=== PATIENT | female | born 1975 | race Caucasian/White ===

== ENCOUNTER → 2022-03-08 | Outpatient (CLI) | payer BC, SELFPAY ==
--- NOTE | 2022-03-08 | CYST_PTH ---
PATIENT: ZAID DAVIS [facility] U[facility][id number] AGE/SX: 46/F ROOM: RE03/08/[address]: RITA KUMAR MD : 1975 BED: DIS: 03/08/2022 SPEC #: [id number] RECD: 03/08/22 13:55 STATUS: SUSIE CRISTIAN #: [id number] TATI: 03/08/22 00:[address]: RITA KUMAR DEPT: SURGICAL PATHOLOGY RECD BY: [place] Tissues: CYST Procedures: Special Stain Group I Surgery Specimen Level IV AFB Stain (control) GMS Stain (control) HEADER OPERATION: Biopsy of right mandible cystic lesion PRE-OP DIAGNOSIS: Right mandible lesion TISSUE SUBMITTED: Right mandible cyst MICROSCOPIC DIAGNOSIS Right mandibular cyst, biopsy: Squamous mucosa with ulceration, acute and chronic inflammation and granulation. Bone with no pathologic changes. Negative for acid-fast bacilli and fungal organisms. See comment. AM:vinay 03/11/2022 COMMENT AFB and GMS stains with matched controls were used in the evaluation of this case. Due to extensive inflammation, an odontogenic keratocyst cannot be ruled out. Radiograph of lesion is reviewed. The lesion is consistent with a radicular/dentigerous cyst. Clinical correlation is suggested. The case is discussed with Dr. Kumar on 03/14/[address] Chapa. Case has been reviewed in consultation with Dr. Nevarez who concurs with the above diagnosis. IDC:SJ MICROSCOPIC DESCRIPTION Slides are reviewed. GROSS DESCRIPTION Received in fixative is one container labeled with the patient's name and designated lower right buccal lesion. The specimen consists of three irregular fragments of light marroquin-pink soft tissue that in aggregate measure 2 x 1 x 0.2 cm. The specimen is totally submitted in one cassette. / AM:vinay 03/08/2022 TC:2 CPT: 75978, 19189 x2
== END | disposition home or self-care (01) ==
PROVIDERS: Referring Provider Dentist Oral and Maxillofacial Surgery; Visit Provider Dentist Oral and Maxillofacial Surgery
DX: M27.9 Disease of jaws, unspecified (principal)
CPT/HCPCS: 88304; 88305; 88312

== ENCOUNTER 2023-03-07 08:29 | Day surgery (SDC) | payer BC, SELFPAY ==
--- NOTE | 2023-02-14 17:22 | PCM.HP.BLA ---
History and Physical Date of Admission: 03/07/23 HPI: The patient is a 47 year old female presenting for pre-operative visit. She is scheduled for Hysteroscopy D&C, fwith possible polyp resection for postmenopausal bleeding and thickened endometrium on 03/07/23. Procedure discussed along with risks, benefits and complications. Other alternatives discussed for management. Consent form signed? No. ? ? PAST MEDICAL HISTORY PAST MEDICAL HISTORY Diagnosis Date ? Cervical high risk HPV (human papillomavirus) test positive 02/25/2022 ? done at - also 12/25/2020,09/10/2019 ? Cervical high risk HPV (human papillomavirus) test positive 10/14/2018 ? on colposcopy done at - 1 oclock ? Depression ? ? Dysplasia of cervix, low grade (CIARAN 1) 02/01/2021 ? done at -colp- 6 oclock ? Dysplasia of cervix, low grade (CIARAN 1) 11/17/2019 ? done at - colp- 2 and 7 oclock ? Fibrocystic breast ? ? left ? Herpes simplex disciform keratitis ? ? Hypothyroidism ? ? Invasive ductal carcinoma of breast, female, left (HCC) 08/02/2015 ? moderately differentiated- estrogen and progesterone receptive POSITIVE ? LGSIL on Pap smear of cervix 02/25/2022 ? done at - also 09/10/2019 ? Low vitamin B12 level ? ? Mixed hyperlipidemia ? ? Muscle weakness (generalized) ? ? Obesity ? ? Osteopenia ? ? BMD 12/02/2022 at ? Sinusitis ? ? ? PAST SURGICAL HISTORY PAST SURGICAL HISTORY Procedure Laterality Date ? BIOPSY OF VULVA ? 11/17/2019 ? done at -squamous mucosa with focal acanthosis, hyperkeratosis, and basal Hypermelanosis ? BREAST LUMPECTOMY HX Left 08/31/2015 ? done at -invasive ductal carcinomia- 9mm ? BX OF BREAST; INCISIONAL Left 08/02/2015 ? done at ? CERVIX UTERI CONIZA LP ELCTRO EXCI ? 03/21/2022 ? at - ? COLONOSCOPY SCREENING ? 08/17/2015 ? HALLUX VALGUS; LAPIDUS TYPE PROC-BUNION ? ? ? HYSTEROSCOPY, DIAGNOSTIC (SEPARATE ? 03/2022 ? D&C ? KNEE SURGERY HX ? 03/13/2009 ? ACL repair ? LIGATE FALLOPIAN TUBE ? ? ? ORAL SURGERY PROCEDURE ? 03/08/2022 ? right mandibular cust/biopsy ? SENT LYMPH NODE BIOPSY ? 08/31/2015 ? left- negative ? VAGINOSCOPY ? 02/01/2021 ? 11/17/2019 ? ? ? CURRENT MEDICATIONS Current Outpatient Medications Medication Sig Dispense Refill ? VENLAFAXINE ER 150 MG TABLET,EXTENDED RELEASE 24 HR Take 150 mg by mouth once daily. ? ? ? buPROPion SR (WELLBUTRIN SR) 100 mg 12 hr tablet Take 100 mg by mouth two times a day. ? ? ? loratadine (CLARITIN) 10 mg tablet, chewable Take 10 mg by mouth once daily. ? ? ? levothyroxine (SYNTHROID) 88 mcg tablet Take 88 mcg by mouth once daily. ? ? ? pravastatin (PRAVACHOL) 20 mg tablet Take 20 mg by mouth once daily. ? ? ? No current facility-administered medications for this visit. ? ? ALLERGIES: Latex ? PERSONAL HISTORY: SOCIAL HISTORY Social History ? Tobacco Use ? Smoking status: Former ? ? Packs/day: 1.00 ? ? Years: 30.00 ? ? Additional pack years: 0.00 ? ? Total pack years: 30.00 ? ? Types: Cigarettes ? ? Quit date: 12/11/2018 ? ? Years since quittin.1 ? Smokeless tobacco: Never Substance Use Topics ? Alcohol use: Yes ? ? Comment: socially ? FAMILY HISTORY: FAMILY HISTORY FAMILY HISTORY Problem Relation Age of Onset ? Hypertension Mother ? ? Aneurysm Mother ? ? Lipids Mother ? ? other (meniere's disease) Mother ? ? Breast Cancer Mother 74 ? Hypertension Father ? ? Lipids Father ? ? Heart Attack Father ? ? Breast Cancer Paternal Grandmother ? ? No Ocular Disease No Family History ? ? ? REVIEW OF SYMPTOMS: GENERAL: denies fevers or chills ENDOCRINOLOGY: has not been on steroids Cardiology : denies palpitations or chest pain Respiratory: denies SOB or cough Hematology: denies history of prolonged bleeding or easy bruising or VTE Allergy: Denies history of personal or family history of allergy to anesthesia ? PHYSICAL EXAMINATION: ? VITALS: Blood pressure 122/84, weight 178 lb (80.7 kg). ? GENERAL: The patient is well nourished, well hydrated in no acute distress. , The patient is oriented to time, place, and person. NECK: Supple. No lynphadenopathy, normal thyroid, no thyromegaly. LUNGS: Clear to auscultation bilaterally. no wheezes, rhonchi or rales HEART: Regular rate and rhythm, Normal heart sounds, and No murmurs or gallops ? IMPRESSION: PMB, Thickened endometrium ? PLAN: The risks/benefits/alternatives and personal involved for the planned hysteroscopy D&C with possible polyp resection were reviewed with the patient. Her questions were answered to her satisfaction and she desires to proceed. Consent was signed. I reviewed with her postop instructions and expectations. ? ? I have reviewed and updated past medical and surgical history, medications and allergies Assessment & Plan Assessment/Plan (1) PMB (postmenopausal bleeding): (2) Endometrial thickening on ultrasound:
[2023-03-07 08:52] VITALS: BP 116/73; PULSE 95; RESP 16; TEMP 37.5; O2SAT 99; BMI 33.8
--- OUTSIDE RECORDS SUMMARY | 2023-03-07 08:53 | XMS RPT_ITS | CCD ---
Author Name Unknown Address [address] [facility] [address] [place] [address] Organization [facility] Care Team Providers Care Attending Ambulatory Care Name Role Phone HASEEB, SHELIA Unavailable Unavailable HASEEB, SHELIA Unavailable Unavailable HARPSTER, DALLAS Unavailable Unavailable HASEEB, SHELIA Unavailable Unavailable HAESEB, SHELIA Unavailable Unavailable HARPSTER, DALLAS Unavailable Unavailable HASEEB, SHELIA Unavailable Unavailable HASEEB, SHELIA Unavailable Unavailable HARPSTER, DALLAS Unavailable Unavailable HASEEB, SHELIA Unavailable Unavailable HASEEB, SHELIA Unavailable Unavailable HARPSTER, DALLAS Unavailable Unavailable HASEEB, SHELIA Unavailable Unavailable HASEEB, SHELIA Unavailable Unavailable HARPSTER, DALLAS Unavailable Unavailable Edna Miranda Unavailable Unavaila ble Orefield, Aby July Unavailable Unavailab le Orefield, Aby Unavailable Unavailable Orefield, Aby Unavailable Unavailable Orefield, Aby Unavailable Unavailable Orefield, Aby J Unavailable Unavailable Luis Drummond Unavailable Unavailable Orefield, Aby J Unavailable Unavailable Unavailable Unavailable Unavailable Alondra Sykes Unavailable Unavailable Orefield, Aby J Unavailable Unavailable Unavailable Unavailable Charmaine Potter P Unavailable Doris Gill MD A Primary Care Provider Doris Gill MD A Primary Care Provider Doris Gill MD A Primary Care Provider Gabriela Mcfarland Attending Unavailable Charmaine Potter Primary Care Unavailable Dr. S[place] Admitting Unavailable Dr. [place] Attending Unavailable Potter, Charmaine Primary Care Unavailable HILL, ACADEMIC COUNSELOR SHANTI JONES Attending Unavailable Potter, Charmaine Primary Care Unavailable HILL, ACADEMIC COUNSELOR SHANTI JONES Admitting Unavailable HILL, ACADEMIC COUNSELOR SHANTI JONES Attending Unavailable Potter, Charmaine Primary Care Unavailable Potter, Charmaine Attending Unavailable Potter, Charmaine Primary Care Unavailable Potter, Charmaine Attending Unavailable Potter, Charmaine Primary Care Unavailable Potter, Charmaine Attending Unavailable Potter, Charmaine Referring Unavailable Potter, Charmaine Primary Care Unavailable Potter, Charmaine Primary Care Unavailable MD DORIS GILL Attending Caterina vailable Potter, Charmaine Attending Unavailable Potter, Charmaine Referring Unavailable Potter, Charmaine Admitting Unavailable Potter, Charmaine Primary Care Unavailable Potter, Charmaine Attending Unavailable Potter, Charmaine Referring Unavailable Orefield, Ms. Aby June Primary Care Unava ilable Potter, Charmaine Attending Unavailable Orefield, Ms. Aby [facility] Care Unava ilable Orefield, Ms. Aby June Primary Care Unava ilable Potter, Charmaine Primary Care Unavailable Bartolo, MsTarah Harper Attending Unavailabl e Bartolo, MsTarah Harper Referring Unavailabl e Potetr, Charmaine Primary Care Unavailable Mcfarland, MsTarah Harper Attending Unavailabl e Mcfarland, MsTarah Ochoa M Referring Unavailabl e Potter, Charmaine Primary Care Unavailable Orefield, Ms. Aby [facility] Care Unava ilable Bg, Dr. Doris Wick Attending Un available Bg, Dr. Doris Wick Referring Un available Potter, Charmaine Primary Care Unavailable Bg, Dr. Doris Wick Attending Un available Bg, Dr. Doris Wick Referring Un available Potter, Charmaine Referring Unavailable Potter, Charmaine Primary Care Unavailable Potter, Charmaine Attending Unavailable Potter, Charmaine Attending Unavailable Orefield, Ms. Aby June Primary Care Unava ilable Potter, Charmaine Referring Unavailable Doris Gill MD Primary Care Provider Unavailable Primary Care Provider DORIS Guerra Attending Unavailab le LONGSDORF, DORIS A Referring Unavailab le LONGSDORF, DORIS A Primary Care Unavailab GABRIELA De Attending Unavailable GABRIELA MCFARLAND Referring Unavailable LONGSDORF, DORIS A Primary Care Unavailab le LONGSDORF, DORIS A Attending Unavailab le LONGSDORF, DORIS A Primary Care Unavailab le LONGSDORF, DORIS A Attending Unavailab le LONGSDORF, DORIS A Referring Unavailab le LONGSDORF, DORIS A Primary Care Unavailab GABRIELA De Attending Unavailable LONGSDORF, DORIS A Primary Care Unavailab RE Ornelas Attending Unavailable GABRIELA MCFARLAND Referring Unavailable LONGSDORF, DORIS A Primary Care Unavailab le LONGSDORF, DORIS A Attending Unavailab le LONGSDORF, DORIS A Primary Care Unavailab Arely Weber MD Unavailable CHARMAINE POTTER Primary Care Unavailable LONGSDORF, DORIS A Primary Care Unavailab sari STEVE, DORIS Giana Attending Unavailable ARELY HARTMAN Referring Unavailable LONGSDORF, DORIS A Primary Care Unavailab le LONGSDORF, DORIS A Primary Care Unavailab le LONGSDORF, DORIS A Primary Care Unavailab JOE Castrejon Attending Unavailable HAURYSANTI Attending Unavailable HAURY, SANTI Attending Unavailable LONGSDORF, DORIS A Primary Care Unavailab MAX Haas Attending Unavailable LONGSDORF, DORIS A Primary Care Unavailab GABRIELA De Referring Unavailable GABRIELA MCFARLAND Referring Unavailable LONGSDORF, DORIS A Primary Care Unavailab GABRIELA De Referring Unavailable LONGSDORF, DORIS A Primary Care Unavailab SHANTI Carreno Referring Unavailable LONGSDORF, DORIS A Primary Care Unavailab GABRIELA De Referring Unavailable LONGSDORF, DORIS A Primary Care Unavailab GABRIELA De Referring Unavailable LONGSDORF, DORIS A Primary Care Unavailab SHANTI Carreno S Attending Unavailable LONGSDORF, DORIS A Primary Care Unavailab SHANTI Carreno S Referring Unavailable LONGSDORF, DORIS A Primary Care Unavailab GABRIELA De Referring Unavailable LONGSDORF, DORIS A Primary Care Unavailab GABRIELA De Referring Unavailable DORIS GILL Primary Care Unavailab ARELY Weber Attending Unavailable SHANTI ARAUJO Referring Unavailable DORIS GILL Primary Care Unavailab DORIS Bridges Primary Care Unavailab le Allergies Allergy Classification Reported Allergen(s) Allergy Type Date of Onset Reaction(s) Facility (20 sources) Latex; Translations: [LATEX] Propensity to adverse reactions 3 Other, Other: See Comments [facility] (2 sources) natural latex rubber Allergy to substance (finding) [facility] [address] Work Phone: Medications Current Medications Medication Drug Class(es) Dates Sig (Normalized) Sig (Original) 24 hr buPROPion hydrochloride 150 mg extended release oral tablet (20 sources) Aminoketone Start: 03-11-2022 take 1 tablet by mouth once daily buPROPion XL (Wellbutrin XL) 150 mg 24 hr tablet Indications: Recurrent major depressive disorder, remission status unspecified (CMS/HCC) Take 1 tablet (150 mg) by mouth once daily. 90 tablet 1 09/05/2022 Active Completed/Discontinued Medications Medication Drug Class(es) Dates Sig (Normalized) Sig (Original) amoxicillin 875 mg oral tablet (8 sources) Penicillin-class Antibacterial Start: 11-09-19 End: 12-22-19 21 take 1 tablet by mouth once daily Amoxicillin 875 MG Oral Tablet TAKE 1 TABLET EVERY 12 HOURS DAILY. Quantity: 14 Refills: 0 Ordered: 09-Nov-2019 Aby Bradford Start : 09-Nov-2019 End : 21-Dec-2020 Complete busPIRone hydrochloride 5 mg oral tablet (1 source) Start: 08-09-19 16 busPIRone HCl - 5 MG Oral Tablet Quantity: 60 Refills: 0 Start : 09-Aug-2015 Active citalopram 20 mg oral tablet (6 sources) Serotonin Reuptake Inhibitor take 1 tablet by mouth once daily CeleXA 20 MG Oral Tablet Take 1 tablet daily Quantity: 0 Refills: 0 Ordered: 26-Feb-2021 DO Active 1 ml dexamethasone phosphate 4 mg/ml injection (2 sources) Corticosteroid Start: 11-14-19 23 End: 11-14-19 23 dexAMETHasone (Decadron) injection 4 mg fluticasone propionate 0.05 mg/actuat metered dose nasal spray (16 sources) Corticosteroid Start: 10-28-19 End: 12-22-19 take 1 spray(s) nasal route twice daily Fluticasone Propionate 50 MCG/ACT Nasal Suspension USE 1 SPRAY INTO EACH NOSTRIL TWICE A DAY Quantity: 16 Refills: 0 Ordered: 19-Nov-2019 Sandy ROSECORNELIOAby Start : 19-Nov-2019 End : 21-Dec-2020 Complete ibuprofen 400 mg oral tablet (7 sources) Nonsteroidal Anti-inflammatory Drug End: 12-21-19 take 1 tablet by mouth four times daily at mealtime ibuprofen 400 mg tablet Take 1 tablet (400 mg) by mouth 4 times a day. With food 0 12/20/2022 Discontinued (Med List Cleanup) medroxyPROGESTERone acetate 10 mg oral tablet (4 sources) Progestin Start: 01-07-20 End: 01-21-20 take 1 tablet by mouth once daily medroxyPROGESTERone (PROVERA) 10 mg tablet Take 1 tablet by mouth once daily. 10 tablet 0 01/06/2023 01/20/2023 Discontinued (Course of therapy completed) Problems Active Problems Problem Classification Problem Date Documented Da te Episodic/Chronic Cancer of breast (20 sources) Malignant neoplasm of central part of female breast; Translations: [Malignant neoplasm of central portion of female breast] Onset: 04-01-2022 06-17-2022 Chronic Diseases of mouth; excluding dental (1 source) Leukoplakia of oral mucosa, including tongue; Translations: [Leukoplakia of oral mucosa, including tongue] Onset: 09-06-2022 Episodic Diseases of white blood cells (1 source) Decreased white blood cell count, unspecified; Translations: [Decreased white blood cell count, unspecified] Onset: 04-01-2022 Chronic Disorders of lipid metabolism (20 sources) Mixed hyperlipidemia; Translations: [Mixed hyperlipidemia] Onset: 03-11-2022 06-17-2022 Chronic Disorders usually diagnosed in infancy, childhood, or adolescence (2 sources) Tic disorder, unspecified Onset: 06-20-2021 Chronic Immunizations and screening for infectious disease (20 sources) Patient encounter status; Translations: [Need for prophylactic vaccination and inoculation against unspecified single disease] 12-09-2022 Episodic Menopausal disorders (8 sources) Postmenopausal bleeding; Translations: [Postmenopausal bleeding] Onset: 12-19-2022 12-19-2022 Chronic Mood disorders (20 sources) Recurrent major depression; Translations: [Major depressive affective disorder, recurrent episode, unspecified] Onset: 04-03-2022 06-17-2022 Chronic Mood disorders (1 source) Mood disorders; Translations: [Depression, unspecified] Onset: 03-21-2022 Nonmalignant breast conditions (20 sources) Fibrocystic disease of breast; Translations: [Diffuse cystic mastopathy] Onset: 04-03-2022 04-03-2022 Chronic Other and unspecified benign neoplasm (20 sources) Fibroadenoma of breast; Translations: [Benign neoplasm of breast] Episodic Other bone disease and musculoskeletal deformities (7 sources) Osteopenia; Translations: [Other specified disorders of bone density and structure, unspecified site] Onset: 12-19-2022 12-19-2022 Episodic Other connective tissue disease (2 sources) Biceps tendinitis; Translations: [Bicipital tenosynovitis] Episodic Other connective tissue disease (1 source) Lateral epicondylitis, unspecified elbow; Translations: [Lateral epicondylitis, unspecified elbow] Onset: 09-30-2022 Episodic Other eye disorders (18 sources) Pain in eye; Translations: [Pain in or around eye] Episodic Other female genital disorders (1 source) Abnormal uterine bleeding; Translations: [Abnormal uterine and vaginal bleeding, unspecified] 01-20-2023 Chronic Other female genital disorders (2 sources) Abnormal uterine and vaginal bleeding, unspecified; Translations: [Abnormal uterine and vaginal bleeding, unspecified] Onset: 02-07-2023 Chronic Other female genital disorders (6 sources) Vaginal discharge; Translations: [Leukorrhea, not specified as infective] Episodic Other gastrointestinal disorders (1 source) Constipation; Translations: [Constipation, unspecified] 12-19-2022 Episodic Other non-traumatic joint disorders (4 sources) Shoulder pain; Translations: [Pain in right shoulder] 07-15-2022 Episodic Other non-traumatic joint disorders (3 sources) Pain in elbow; Translations: [Pain in joint, upper arm] Episodic Other non-traumatic joint disorders (14 sources) Pain in right shoulder; Translations: [Acute pain of right shoulder] Onset: 07-15-2022 Episodic Other non-traumatic joint disorders (4 sources) Pain in right elbow; Translations: [Pain in right elbow] Onset: 09-30-2022 Episodic Other nutritional; endocrine; and metabolic disorders (20 sources) Obesity; Translations: [Obesity, unspecified] Onset: 04-03-2022 04-03-2022 Chronic Other nutritional; endocrine; and metabolic disorders (1 source) Obesity, unspecified; Translations: [Obesity, unspecified] Onset: 03-21-2022 Chronic Other nutritional; endocrine; and metabolic disorders (1 source) Body mass index (BMI) 32.0-32.9, adult; Translations: [Body mass index [BMI] 32.0-32.9, adult] Onset: 03-21-2022 Chronic Other and delivery including normal (20 sources) Delivery normal; Translations: [Normal delivery] Episodic Past or Other Problems Problem Classification Problem Date Documented Date Episodic/Chronic Allergic reactions (1 source) Latex allergy status; Translations: [Latex allergy status] Onset: 03-21-2022 Episodic Blindness and vision defects (20 sources) Visual disturbance; Translations: [Unspecified visual disturbance] Onset: 04-03-2022 04-03-2022 Episodic Cancer of breast (20 sources) History of malignant neoplasm of breast; Translations: [Personal history of malignant neoplasm of breast] Onset: 03-21-2022 Episodic Cancer of cervix (13 sources) Low grade squamous intraepithelial lesion on cervical Papanicolaou smear; Translations: [Papanicolaou smear of cervix with low grade squamous intraepithelial lesion (LGSIL)] Onset: 03-21-2022 Episodic Contraceptive and procreative management (1 source) Tubal ligation status; Translations: [Tubal ligation status] Onset: 03-21-2022 Episodic Nutritional deficiencies (20 sources) Decreased vitamin B12 level; Translations: [Other B-complex deficiencies] Onset: 04-03-2022 06-17-2022 Episodic Other and unspecified benign neoplasm (11 sources) Fibroadenoma of left breast; Translations: [Benign neoplasm of left breast] Onset: 04-03-2022 04-03-2022 Episodic Other connective tissue disease (11 sources) Medial epicondylitis of right humerus; Translations: [Medial epicondylitis, right elbow] Onset: 11-13-2022 11-13-2022 Episodic Other connective tissue disease (4 sources) Medial epicondylitis, right elbow; Translations: [Medial epicondylitis, right elbow] Onset: 11-13-2022 Episodic Other female genital disorders (20 sources) Vaginal lesion; Translations: [Other specified noninflammatory disorders of vagina] Onset: 04-03-2022 04-03-2022 Episodic Other female genital disorders (20 sources) Cervical intraepithelial neoplasia grade 1; Translations: [Mild dysplasia of cervix] Onset: 04-03-2022 04-03-2022 Episodic Other female genital disorders (20 sources) Enlarged uterus; Translations: [Hypertrophy of uterus] Onset: 04-03-2022 04-03-2022 Episodic Other female genital disorders (2 sources) Mild cervical dysplasia; Translations: [Mild cervical dysplasia] Onset: 03-21-2022 Episodic Other female genital disorders (4 sources) Hypertrophy of uterus; Translations: [Hypertrophy of uterus] Onset: 03-04-2022 Episodic Other inflammatory condition of skin (11 sources) Itching of skin; Translations: [Unspecified pruritic disorder] Onset: 04-03-2022 Resolved: 04-23-2022 04-23-2022 Episodic Other inflammatory condition of skin (12 sources) Pruritus, unspecified; Translations: [Pruritus] Onset: 03-11-2022 Resolved: 04-23-2022 04-23-2022 Episodic Other screening for suspected conditions (not mental disorders or infectious disease) (20 sources) Cancer cervix screening status; Translations: [Screening for malignant neoplasms of cervix] Onset: 02-25-2022 Episodic Sexually transmitted infections (not HIV or hepatitis) (20 sources) Cervical smear result; Translations: [Cervical high risk human papillomavirus (HPV) DNA test positive] Onset: 04-03-2022 04-03-2022 Episodic Unclassified (1 source) Encntr screen mammogram for malignant neoplasm of breast; Translations: [Encntr screen mammogram for malignant neoplasm of breast] Onset: 08-11-2017 Unclassified (1 source) Patient encounter status; Translations: [Encounter for vaccination] Unclassified (20 sources) Finding of menstrual bleeding; Translations: [Menstruation] Results Test Name Value Interpretation Reference Range Facil ity Vital Signs Date Time Vital Sign Value Performing Clinician Facility 02-21-2023 11:00-0500 Diastolic blood pressure 84 mm[Hg] Max Cisneros DO Work Phone: [facility] 02-21-2023 11:00-0500 Heart rate 84 /min Max Cisneros DO Work Phone: [facility] 02-21-2023 11:00-0500 Respiratory rate 16 /min Max Cisneros DO Work Phone: [facility] 02-21-2023 11:00-0500 SaO2% (BldA) [Mass fraction] 96 % Max Cisneros DO Work Phone: [facility] 02-21-2023 11:00-0500 Systolic blood pressure 108 mm[Hg] Max Cisneros DO Work Phone: [facility] 02-21-2023 10:01-0500 Body height 154.9 cm Max Cisneros DO Work Phone: [facility] 02-21-2023 10:01-0500 Body mass index (BMI) [Ratio] 33.82 kg/m2 Max Cisneros DO Work Phone: [facility] 02-21-2023 10:01-0500 Body temperature 97.81 [degF] Max Cisneros DO Work Phone: [facility] 02-21-2023 10:01-0500 Body weight 81.19 kg Max Cisneros DO Work Phone: [facility] 01-13-2023 08:57-0500 Body height 157.5 cm Arely Hartman MD Work Phone: [facility] 01-13-2023 08:57-0500 Body mass index (BMI) [Ratio] 32.69 kg/m2 Arely Hartman MD Work Phone: [facility] 01-13-2023 08:57-0500 Body temperature 97.9 [degF] Arely Hartman MD Work Phone: [facility] 01-13-2023 08:57-0500 Body weight 81.1 kg Arely Hartman MD Work Phone: [facility] 01-13-2023 08:57-0500 Diastolic blood pressure 81 mm[Hg] Arely Hartman MD Work Phone: [facility] 01-13-2023 08:57-0500 Heart rate 90 /min Arely Hartman MD Work Phone: [facility] 01-13-2023 08:57-0500 Respiratory rate 16 /min Arely Hartman MD Work Phone: [facility] 01-13-2023 08:57-0500 SaO2% (BldA) [Mass fraction] 96 % Arely Hartman MD Work Phone: [facility] 01-13-2023 08:57-0500 Systolic blood pressure 117 mm[Hg] Arely Hartman MD Work Phone: [facility] 01-03-2023 10:27-0500 Diastolic blood pressure 72 mm[Hg] Santi Haury MUSEUM SECURITY CHIEF.ACADEMIC COUNSELOR Work Phone: [facility] 01-03-2023 10:27-0500 Heart rate 97 /min Santi Haemery MUSEUM SECURITY CHIEF.ACADEMIC COUNSELOR Work Phone: [facility] 01-03-2023 10:27-0500 SaO2% (BldA) [Mass fraction] 98 % Santi Haury MUSEUM SECURITY CHIEF.ACADEMIC COUNSELOR Work Phone: [facility] 01-03-2023 10:27-0500 Systolic blood pressure 110 mm[Hg] Santi Haury MUSEUM SECURITY CHIEF.ACADEMIC COUNSELOR Work Phone: [facility] 01-03-2023 09:59-0500 Body weight 79.83 kg Santi Haury MUSEUM SECURITY CHIEF.ACADEMIC COUNSELOR Work Phone: [facility] 12-19-2022 09:49-0500 Body weight 78.47 kg Santi Haury MUSEUM SECURITY CHIEF.ACADEMIC COUNSELOR Work Phone: [facility] 12-19-2022 09:49-0500 Diastolic blood pressure 82 mm[Hg] Santi Haury MUSEUM SECURITY CHIEF.ACADEMIC COUNSELOR Work Phone: [facility] 12-19-2022 09:49-0500 Systolic blood pressure 120 mm[Hg] Santiparul Daltonemery MUSEUM SECURITY CHIEF.ACADEMIC COUNSELOR Work Phone: [facility] 12-05-2022 09:52-0400 Body height 157.5 cm Shanti Araujo MUSEUM SECURITY CHIEF-ACADEMIC COUNSELOR Work Phone: [facility] 12-05-2022 09:52-0400 Body mass index (BMI) [Ratio] 31.63 kg/m2 Shanti Araujo MUSEUM SECURITY CHIEF-ACADEMIC COUNSELOR Work Phone: [facility] 12-05-2022 09:52-0400 Body weight 78.47 kg Shanti Araujo MUSEUM SECURITY CHIEF-ACADEMIC COUNSELOR Work Phone: [facility] 12-05-2022 09:52-0400 Diastolic blood pressure 83 mm[Hg] Shanti Araujo MUSEUM SECURITY CHIEF-ACADEMIC COUNSELOR Work Phone: [facility] 12-05-2022 09:52-0400 Heart rate 88 /min Shanti Araujo MUSEUM SECURITY CHIEF-ACADEMIC COUNSELOR Work Phone: [facility] 12-05-2022 09:52-0400 Respiratory rate 20 /min Shanti Araujo MUSEUM SECURITY CHIEF-ACADEMIC COUNSELOR Work Phone: [facility] 12-05-2022 09:52-0400 SaO2% (BldA) [Mass fraction] 97 % Shanti Araujo MUSEUM SECURITY CHIEF-ACADEMIC COUNSELOR Work Phone: [facility] 12-05-2022 09:52-0400 Systolic blood pressure 119 mm[Hg] Shanti Araujo MUSEUM SECURITY CHIEF-ACADEMIC COUNSELOR Work Phone: [facility] 09-30-2022 08:07-0400 Body temperature 98.6 [degF] Charmaine P Potter Work Phone: [facility] [address] Work Phone: 09-17-2022 08:02-0400 Body height 157.5 cm Doris Gill MD Work Phone: [facility] 09-17-2022 08:02-0400 Body mass index (BMI) [Ratio] 30.75 kg/m2 Doris Gill MD Work Phone: [facility] 09-17-2022 08:02-0400 Body weight 76.25 kg Doris Gill MD Work Phone: [facility] 09-17-2022 08:02-0400 Diastolic blood pressure 84 mm[Hg] Doris Gill MD Work Phone: [facility] 09-17-2022 08:02-0400 Heart rate 79 /min Doris Gill MD Work Phone: [facility] 09-17-2022 08:02-0400 SaO2% (BldA) [Mass fraction] 99 % Doris Gill MD Work Phone: [facility] 09-17-2022 08:02-0400 Systolic blood pressure 116 mm[Hg] Doris Gill MD Work Phone: [facility] 07-15-2022 16:18-0400 Body mass index (BMI) [Ratio] 31.46 kg/m2 Doris Gill MD Work Phone: [facility] 07-15-2022 16:18-0400 Body weight 78.02 kg Doris Gill MD Work Phone: [facility] 07-15-2022 16:18-0400 Diastolic blood pressure 78 mm[Hg] Doris Gill MD Work Phone: [facility] 07-15-2022 16:18-0400 Heart rate 83 /min Doris Gill MD Work Phone: [facility] 07-15-2022 16:18-0400 SaO2% (BldA) [Mass fraction] 96 % Doris Gill MD Work Phone: [facility] 07-15-2022 16:18-0400 Systolic blood pressure 126 mm[Hg] Doris Gill MD Work Phone: [facility] 06-17-2022 08:03-0400 Body height 157.5 cm Doris Gill MD Work Phone: [facility] 06-17-2022 08:03-0400 Body mass index (BMI) [Ratio] 31.39 kg/m2 Doris Gill MD Work Phone: [facility] 06-17-2022 08:03-0400 Body weight 77.84 kg Doris Gill MD Work Phone: [facility] 06-17-2022 08:03-0400 Diastolic blood pressure 80 mm[Hg] Doris Gill MD Work Phone: [facility] 06-17-2022 08:03-0400 Heart rate 84 /min Doris Gill MD Work Phone: [facility] 06-17-2022 08:03-0400 Systolic blood pressure 130 mm[Hg] Doris Gill MD Work Phone: [facility] 04-05-2022 10:47-0500 Body height 157.48 cm Charmaine P Potter Work Phone: [place] [address] [place] Work Phone: 04-05-2022 10:47-0500 Body mass index (BMI) [Ratio] 30.8 kg/m2 Charmaine P Potter Work Phone: [place] [address] [place] Work Phone: 04-05-2022 10:47-0500 Body surface area Derived from formula 1.78 m2 Charmaine P Potter Work Phone: [facility] [address] [place] Work Phone: 04-05-2022 10:47-0500 Body weight 76.38 kg Charmaine P Potter Work Phone: [address] Work Phone: 04-05-2022 10:47-0500 Diastolic blood pressure 78 mm[Hg] Charmaine P Potter Work Phone: [address] Work Phone: 04-05-2022 10:47-0500 Systolic blood pressure 120 mm[Hg] Charmaine P Potter Work Phone: [address] Work Phone: 04-01-2022 08:45-0500 Body height 157.48 cm Charmaine P Potter Work Phone: [facility] Work Phone: 04-01-2022 08:45-0500 Body mass index (BMI) [Ratio] 30.76 kg/m2 Charmaine P Potter Work Phone: [facility] Work Phone: 04-01-2022 08:45-0500 Body surface area Derived from formula 1.78 m2 Charmaine P Potter Work Phone: [facility] Work Phone: 04-01-2022 08:45-0500 Body weight 76.29 kg Charmaine P Potter Work Phone: [facility] Work Phone: 04-01-2022 08:45-0500 Diastolic blood pressure 82 mm[Hg] Charmaine P Potter Work [facility]: [facility] [facility] Work Phone: 04-01-2022 08:45-0500 Heart rate 90 /min Charmaine P Potter Work Phone: [facility] Work Phone: 04-01-2022 08:45-0500 SaO2% (BldA) [Mass fraction] 98 % Charmaine P Potter Work Phone: [facility] Work Phone: 04-01-2022 08:45-0500 Systolic blood pressure 110 mm[Hg] Charmaine P Potter Work Phone: [facility] Work Phone: 03-11-2022 08:04-0500 Body height 157.48 cm Charmaine P Potter Work Phone: [facility] Work Phone: 03-11-2022 08:04-0500 Body mass index (BMI) [Ratio] 31.09 kg/m2 Charmaine P Potter Work Phone: [facility] Work Phone: 03-11-2022 08:04-0500 Body surface area Derived from formula 1.78 m2 Charmaine P Potter Work Phone: [facility] Work Phone: 03-11-2022 08:04-0500 Body weight 77.11 kg Charmaine P Potter Work Phone: [facility] Work Phone: 03-11-2022 08:04-0500 Diastolic blood pressure 78 mm[Hg] Charmaine P Potter Work Phone: [facility] Work Phone: 03-11-2022 08:04-0500 Heart rate 85 /min Charmaine P Potter Work Phone: [facility] Work Phone: 03-11-2022 08:04-0500 SaO2% (BldA) [Mass fraction] 99 % Charmaine P Potter Work Phone: [facility] Work Phone: 03-11-2022 08:04-0500 Systolic blood pressure 120 mm[Hg] Charmanie Potter Work Phone: [facility] Work Phone: 03-06-2022 08:37-0500 Body height 157.48 cm Aby Delgado [address] Work Phone: 03-06-2022 08:37-0500 Body mass index (BMI) [Ratio] 30.73 kg/m2 Aby Delgado [address] Work Phone: 03-06-2022 08:37-0500 Body surface area Derived from formula 1.77 m2 Aby Delgado [address] Work Phone: 03-06-2022 08:37-0500 Body weight 76.2 kg Aby Delgado [address] Work Phone: 03-06-2022 08:37-0500 Diastolic blood pressure 82 mm[Hg] Aby Delgado [address] Work Phone: 03-06-2022 08:37-0500 Systolic blood pressure 126 mm[Hg] Aby Delgado [address] Work Phone: 02-25-2022 10:44-0500 Body height 157.48 cm Aby Delgado [address] Work Phone: 02-25-2022 10:44-0500 Body mass index (BMI) [Ratio] 30.82 kg/m2 Aby Delgado [address] Work Phone: 02-25-2022 10:44-0500 Body surface area Derived from formula 1.78 m2 Aby J Orefield [address] Work Phone: 02-25-2022 10:44-0500 Body weight 76.43 kg Aby Delgado [address] Work Phone: 02-25-2022 10:44-0500 Diastolic blood pressure 82 mm[Hg] Aby Delgado [address] Work Phone: 02-25-2022 10:44-0500 Systolic blood pressure 118 mm[Hg] Aby Delgado [address] Work Phone: 06-20-2021 13:40-0400 Body height 154.94 cm [facility] [place] [facility] 06-20-2021 13:40-0400 Body height 61 cm Alondra Bobonic [facility] [place] [facility] 06-20-2021 13:40-0400 Body mass index (BMI) [Ratio] 28.72 kg/m2 Alondra Bobonich [facility] 06-20-2021 13:40-0400 Body weight 152 kg Alondra Bobonic [facility] [place] [facility] 06-20-2021 13:40-0400 Body weight 68.95 kg Alondra Bobonich [facility] [place] [facility] 02-26-2021 15:08-0500 Body height 157.48 cm Aby Delgado Work Phone: [facility] Work Phone: 02-26-2021 15:08-0500 Body mass index (BMI) [Ratio] 28.35 kg/m2 Aby Delgado Work Phone: [facility] Work Phone: 02-26-2021 15:08-0500 Body surface area Derived from formula 1.72 m2 Aby Delgado Work Phone: [facility] Work Phone: 02-26-2021 15:08-0500 Body temperature 97.7 [degF] Aby Delgado Work Phone: [facility] Work Phone: 02-26-2021 15:08-0500 Body weight 70.31 kg Aby Delgado Work Phone: [facility] Work Phone: 02-26-2021 15:08-0500 Diastolic blood pressure 62 mm[Hg] Aby Delgado Work Phone: [facility] Work Phone: 02-26-2021 15:08-0500 Heart rate 84 /min Aby Delgado Work Phone: [facility] Work Phone: 02-26-2021 15:08-0500 SaO2% (BldA) [Mass fraction] 98 % Aby Delgado Work Phone: [facility] Work Phone: 02-26-2021 15:08-0500 Systolic blood pressure 118 mm[Hg] Aby Delgado Work Phone: [facility] Work Phone: 01-30-2021 11:25-0500 Body height 157.48 cm Aby Delgado Work Phone: [place] [address] [employer] Work Phone: 01-30-2021 11:25-0500 Body mass index (BMI) [Ratio] 27.87 kg/m2 Aby Delgado Work Phone: [place] [address] [place] Work Phone: 01-30-2021 11:25-0500 Body surface area Derived from formula 1.7 m2 Aby Delgado Work Phone: [place] [address] [place] Work Phone: 01-30-2021 11:25-0500 Body temperature 98 [degF] Aby Ferrellter Work Phone: [place] [address] [place] Work Phone: 01-30-2021 11:25-0500 Body weight 69.12 kg Aby Ferrellter Work Phone: [place] [address] [employer] Work Phone: 01-30-2021 11:25-0500 Diastolic blood pressure 84 mm[Hg] Aby Ferrellter Work Phone: [place] [address] [employer] Work Phone: 01-30-2021 11:25-0500 Systolic blood pressure 116 mm[Hg] Aby Delgado Work Phone: [place] [address] [employer] Work Phone: 12-22-2020 11:40-0500 Body height 157.48 cm Aby Delgado Work Phone: [place] [address] [employer] Work Phone: 12-22-2020 11:40-0500 Body mass index (BMI) [Ratio] 28.31 kg/m2 Aby Delgado Work Phone: [place] [address] [place] Work Phone: 12-22-2020 11:40-0500 Body surface area Derived from formula 1.71 m2 Aby Ferrellter Work Phone: [place] [address] [place] Work Phone: 12-22-2020 11:40-0500 Body temperature 98.6 [degF] Aby Ferrellter Work Phone: [place] [address] [place] Work Phone: 12-22-2020 11:40-0500 Body weight 70.2 kg Aby Delgado Work Phone: [address] Work Phone: 12-22-2020 11:40-0500 Diastolic blood pressure 68 mm[Hg] Aby Ferrellter Work Phone: [address] Work Phone: 12-22-2020 11:40-0500 Systolic blood pressure 112 mm[Hg] Aby Delgado Work Phone: [address] Work Phone: 12-21-2020 10:45-0500 Body height 157.48 cm Aby Delgado Work Phone: [facility] Work Phone: 12-21-2020 10:45-0500 Body mass index (BMI) [Ratio] 28.4 kg/m2 Aby Ferrellter Work Phone: [facility] Work Phone: 12-21-2020 10:45-0500 Body surface area Derived from formula 1.72 m2 Aby Delgado Work Phone: [facility] Work Phone: 12-21-2020 10:45-0500 Body temperature 98.7 [degF] Aby Ferrellter Work Phone: [facility] Work Phone: 12-21-2020 10:45-0500 Body weight 70.42 kg Aby Ferrellter Work Phone: [facility] Work Phone: 12-21-2020 10:45-0500 Diastolic blood pressure 70 mm[Hg] Aby J Orefield Work Phone: [facility] Work Phone: 12-21-2020 10:45-0500 Heart rate 80 /min Aby Delgado Work Phone: [facility] Work Phone: 12-21-2020 10:45-0500 Systolic blood pressure 108 mm[Hg] Aby Delgado Work Phone: [facility] Work Phone: Encounters Encounter Date Encounter Type Care Provider Facility Start: 02-21-2023 End: 02-21-2023 Emergency department patient visit DORIS NAPIERMSRADHA [facility] Start: 02-21-2023 End: 02-21-2023 Emergency department patient visit Max Cisneros DO Work Phone: [facility] Emergency Medicine Procedures Date Procedure Procedure Detail Performing Clinician Start: 02-21-2023 WRIST SPLINT DORIS GILL Start: 02-21-2023 XR WRIST LEFT 3+ VIEWS DORIS GILL Start: 02-21-2023 Radex wrist complete minimum 3 views Max Cisneros DO Work Phone: Start: 02-07-2023 CBC W Auto Different ial panel - Blood CHARMAINE POTTER Start: 01-28-2023 MISCELLANEOUS GENETICS TEST CHARMAINE POTTER Start: 01-20-2023 AMB REFERRAL TO GENETICS CHARMAINE POTTER Start: 01-13-2023 CBC W Auto Different ial panel - Blood DORIS QUYENNEREIDA Start: 01-13-2023 Comprehensive metabo lic 2000 panel - Serum or Plasma DORIS GILL Start: 01-13-2023 FOLATE DORIS GILL Start: 01-13-2023 IRON AND TIBC DORIS GILL Start: 01-13-2023 ONCBCN CLINIC APPOIN TMENT REQUEST DORIS GILL Start: 01-13-2023 Comprehensive metabo lic panel Arely Hartman MD Work Phone: Start: 01-03-2023 Urine test visual color cmprsn meths Santi Suero MUSEUM SECURITY CHIEF.ACADEMIC COUNSELOR Work Phone: Start: 12-31-2022 POINT OF CARE ULTRAS OUND NO CHARGE DORIS GILL Start: 12-27-2022 MR ELBOW RIGHT WO IV CONTRAST DORIS GILL Start: 12-27-2022 Mri any jt upper ext remity w/o contrast matrl Gabriela Mcfarland MUSEUM SECURITY CHIEF-ACADEMIC COUNSELOR Work Phone: Start: 12-20-2022 WRIST BRACE DORIS GILL Start: 12-19-2022 Microscopic observat ion [Identifier] in Cervix by Cyto stain Arely Hartman MD Work Phone: Start: 12-10-2022 FOLLOW UP IN OCCUPAT IONAL THERAPY DORIS GILL Start: 12-09-2022 US PELVIS TRANSABDOM INAL WITH TRANSVAGINAL DORIS GILL Start: 12-09-2022 Us transvaginal Shanti Araujo MUSEUM SECURITY CHIEF-ACADEMIC COUNSELOR Work Phone: Start: 12-05-2022 FOLLOW UP IN OCCUPAT IONAL THERAPY DORIS GILL Start: 12-03-2022 FOLLOW UP IN OCCUPAT IONAL THERAPY DORIS GILL Start: 12-02-2022 ESTRADIOL CHARMAINE RIYA KATHIE Start: 12-02-2022 FOLLICLE STIMULATING HORMONE CHARMAINE POTTER Start: 12-02-2022 LUTEINIZING HORMONE LAUREANO NA POTTER Start: 12-02-2022 DEXA BONE DENSITY SHIRA GILL Start: 11-28-2022 FOLLOW UP IN OCCUPAT IONAL THERAPY DORIS GILL Start: 11-26-2022 FOLLOW UP IN OCCUPAT IONAL THERAPY DORIS GILL Start: 11-20-2022 AMB REFERRAL TO OCCUPATIONAL THERAPY DORIS GILL Start: 11-13-2022 POINT OF CARE ULTRASOUND DORIS GILL Start: 11-13-2022 MEDIUM JOINT INJECTION/ARTHROCENTESIS DORIS GILL Start: 11-13-2022 Arthrocentesis aspir &/inj interm jt/burs w/us Gabriela Mcfarland MUSEUM SECURITY CHIEF-ACADEMIC COUNSELOR Work Phone: Start: 09-17-2022 FOLLOW UP IN FAMILY MEDICINE DORIS GILL Start: 08-29-2022 CBC W Auto Different ial panel - Blood CHARMAINE POTTER Start: 08-29-2022 Comprehensive metabo lic 2000 panel - Serum or Plasma CHARMAINE POTTER Start: 08-29-2022 Cyanocobalamin vitamin b-12 CHARMAINE POTTER Start: 08-29-2022 Lipid panel CHARMAINE RITTER KATHIE Start: 08-29-2022 TSH WITH REFLEX TO F REE T4 IF ABNORMAL CHARMAINE POTTER Start: 08-29-2022 Lipid 1996 panel - S jon or Plasma Doris Gill MD Work Phone: Start: 08-29-2022 Thyrotropin [Units/v olume] in Serum or Plasma Gabriela Mcfarland MUSEUM SECURITY CHIEF-ACADEMIC COUNSELOR Work Phone: Start: 06-17-2022 FOLLOW UP IN FAMILY MEDICINE DORIS GILL Start: 03-11-2022 End: 03-11-2022 Antibody screen Gabriela Mcfarland Plan of Treatment Date Care Activity Detail Author Start: 03-01-2029 DTaP/Tdap/Td Vaccines (2 - Td or Tdap) DTaP/Tdap/Td Vaccines (2 - Td or Tdap) [facility] Start: 03-01-2029 Urine microalbumin profile DTaP,Tdap,Td Vaccine (2 - Td or Tdap) [facility] Start: 12-20-2027 HPV Testing HPV Testing [facility] Start: 12-20-2027 Pap Testing Pap Testing [facility] Start: 08-30-2027 Lipid 1996 panel - Serum or Plasma Lipid Screening [facility] Start: 08-30-2027 Lipid panel Lipid Panel [facility] Start: 03-11-2027 Lipid panel Lipid Panel [facility] Start: 12-19-2025 Screening for malignant neoplasm of cervix [facility] Start: 08-29-2025 Diabetes Screening Diabetes Screening [facility] Start: 02-25-2025 Screening for malignant neoplasm of cervix [facility] Start: 08-30-2023 Mammography Mammogram Screening [facility] Start: 08-30-2023 Thyroid stimulating hormone measurement TSH Level [facility] Start: 07-15-2023 End: 07-15-2023 Patient encounter procedure 07/15/2023 9:00 AM EDT Office Visit [facility] Medical Office [facility] [address] [place] [id number] Shanti Araujo, MUSEUM SECURITY CHIEF-ACADEMIC COUNSELOR [address] [place] [address] [facility] Start: 05-26-2023 Zoster Vaccines (1 of 2) Zoster Vaccines (1 of 2) [facility] Start: 04-01-2023 End: 04-01-2023 Patient encounter procedure 04/01/2023 8:00 AM EST Office Visit [facility] [address] [place] [id number] Re Tijerina MD [address] [place] [address] [facility] Start: 03-31-2023 End: 03-31-2023 Patient encounter procedure [facility] [place] [place] Start: 03-25-2023 End: 03-25-2023 Patient encounter procedure 03/25/2023 7:30 AM EST Appointment [facility] [address] [place] [address] [facility] Start: 03-20-2023 End: 09-18-2023 CBC W Auto Differential panel - Blood CBC and Auto Differential Lab Routine Hypothyroidism, unspecified type Low vitamin B12 level Mixed hyperlipidemia Expected: 03/20/2023 (Approximate), Expires: 09/18/2023 [facility] Service Area Work Phone: Immunizations Immunization Date Immunization Notes Care Provider Fa cili 12-25-2022 Moderna SARS-CoV-2 Vaccination Arely Hartman MD Work Phone: [facility] 12-25-2022 Seasonal, quadrivale nt, recombinant, injectable influenza vaccine, preservative free Arely Hartman MD Work Phone: [facility] Work Phone: 12-10-2021 influenza, injectabl e, quadrivalent, preservative free Aby Delgado -[facility] Work Phone: Payers Date Payer Category Payer Unknown 2022 Unknown [id number] 1975 Unknown [id number] 2.16.8 40.1.896932.3.579.2.1068 1973 Unknown [id number] 2.16.8 40.1.679766.3.579.2.1068 1973 Unknown [id number] 2.16.8 40.1.534807.3.579.2.1068 1973 Unknown [id number] 2.16.8 40.1.661525.3.579.2.1068 1973 Unknown [id number] 2.16.8 40.1.658234.3.579.2.1068 1973 Unknown [id number] 2.16.8 40.1.636195.3.579.2.1068 1973 Unknown [id number] 2.16.8 40.1.148777.3.579.2.1068 1973 Unknown [id number] 2.16.8 40.1.657498.3.579.2.1068 1973 Unknown [id number] 2.16.8 40.1.282564.3.579.2.1068 1973 Unknown [id number] 2.16. 840.1.636647.3.579.2. 1973 Unknown [id number] 2.16. 840.1.955555.3.579.2. 1973 Unknown [id number] 2.16. 840.1.765383.3.579.2. 1973 Unknown [id number] 2.16. 840.1.800255.3.579.2.356 1973 Unknown [id number] 2.16. 840.1.249823.3.579.2.356 1973 Unknown [id number] 2.16. 840.1.898181.3.579.2. 1973 Unknown [id number] 2.16. 840.1.464949.3.579.2. 1973 Unknown [id number] 2.16. 840.1.387444.3.579.2. 1973 Unknown [id number] 2.16. 840.1.009730.3.579.2. 1973 Unknown [id number] 2.16.8 40.1.147628.3.579.2.1243 1973 Unknown [id number] 2.16.8 40.1.340498.3.579.2.1243 1973 Unknown [id number] 2.16.8 40.1.229220.3.579.2.1243 1973 Unknown [id number] 2.16.8 40.1.875581.3.579.2.1243 1973 Unknown [id number] 2.16.84 0.1.805437.3.579.2.1243 1973 Unknown [id number] 2.16.84 0.1.918109.3.579.2.1243 1973 Unknown [id number] 2.16.840 .1.818715.3.579.2.1243 1973 Unknown [id number] 2.16.8 40.1.664667.3.579.2.1244 1973 Unknown [id number] 2.16.8 40.1.762820.3.579.2.1244 1973 Unknown [id number] 2.16.8 40.1.900431.3.579.2.1244 1973 Unknown [id number] 2.16.84 0.1.652920.3.579.2.1244 1973 Unknown [id number] 2.16.84 0.1.733829.3.579.2.1244 1973 Unknown [id number] 2.16.84 0.1.975425.3.579.2.1242 1973 Unknown [id number] 2.16.84 0.1.491419.3.579.2.1242 1973 Unknown [id number] 2.16.84 0.1.106263.3.579.2.1242 1973 Unknown [id number] 2.16.84 0.1.244127.3.579.2.1242 1973 Unknown [id number] 2.16.84 0.1.588946.3.579.2.1242 1973 Unknown [id number] 2.16.84 0.1.092491.3.579.2.1242 1973 Unknown [id number] 2.16.84 0.1.895685.3.579.2.1242 1973 Unknown [id number] 2.16.84 0.1.493574.3.579.2.1242 1973 Unknown [id number] 2.16.84 0.1.557399.3.579.2.1242 1973 Unknown [id number] 2.16.84 0.1.575682.3.579.2.1242 1973 Unknown [id number] 2.16.84 0.1.691370.3.579.2.1242 1973 Unknown [id number] 2.16.84 0.1.939417.3.579.2.1242 1973 Unknown [id number] 2.16.840 .1.762371.3.579.2.1242 Unknown [id number] Social History Date Type Detail Facility Start: 04-23-2022 End: 01-20-2023 Coffee Coffee [facility] Work Phone: Start: 06-20-2021 Sex Dept[facility] D ermatology Start: 1975 [facility] Start: 06-17-2022 End: 07-15-2022 Tobacco smoking status NHIS Ex-smoker [facility] Work Phone: End: 12-11-2018 History of tobacco use Current smoker [facility] Work Phone: End: 12-11-2018 History of tobacco use Cigarette Smoker [facility] Work Phone: Start: 06-17-2022 Tobacco use and exposure User of smokeless tobacco [facility] Work Phone: Start: 06-17-2022 End: 01-20-2023 Alcohol intake Current drinker of alcohol (finding) [facility] Work Phone: Start: 04-23-2022 End: 01-20-2023 Tobacco use panel [facility] Work Phone: Start: 04-23-2022 Alcohol Comment occassionally hard seltzer [facility] Work Phone: Start: 04-16-2022 Gender identity Identifies as female gender (finding) [facility] Work Phone: Start: 04-16-2022 Sexual orientation Heterosexual (fin ding) [facility] Work Phone: Start: 06-07-2022 End: 02-21-2023 Exposure to SARS-CoV-2 (event) Not sure [facility] Start: 07-15-2022 End: 12-19-2022 Tobacco use and exposure Smokeless tobacco non-user [facility] Work Phone: Start: 11-16-2019 Alcohol Comment socially [facility] Start: 1975 Sex Assigned At Not on file [facility] National Score (1-100), lower number is lower risk 80 [facility] NEGATED: Highlighted row - - -[facility] Work Phone: Goals Date Patient Goal Desired Activity /State Functional Status Date Assessment Result Facility NEGATED: Highlighted row Functional performance Functional status health issues are not documented Disease [facility] Work Phone: Mental Status Date Assessment Result Facility NEGATED: Highlighted row Cognitive function [Interpretation] Cognitive status health issues are not documented Disease [facility] Work Phone: Clinical Notes 02-26-2016 to 02-21-2023 Max Cisneros, DO - 02/21/2023 9:51 AM ESTCamerograciela Cisneros, DO - 02/21/2023 9:51 AM ESTTelephone Encounter - Grace Ruiz RN - 01/20/2023 10:44 AM ESTPatient Instructions Note Date & Type Note Facility 02-21-2023 Emergency department Note HPI No chief complaint on file. Limitations to History: None HPI: 47-year-old female presents with left wrist pain after falling approximately 4 hours ago. Tripped over her dog. Fall on outstretched hand. Denies any head injury or loss of consciousness. Additional History Obtained from: at the bedside. Physical Exam: VS: As documented in the triage note and EMR flowsheet from this visit were reviewed. Appearance: Alert. cooperative, in no acute distress. Skin: Intact, dry skin, no lesions, rash, petechiae or purpura. HENT: Normocephalic, atraumatic. Nares patent. No intraoral lesions. Neck: Supple, without meningismus. Trachea at midline. No lymphadenopathy. Musculoskeletal: Full range of motion of the left wrist. Tenderness to palpation of the anterior aspect. Strong palpable radial pulse. Full movement of all fingers. Neurological: Sensation grossly intact to the medial lateral aspect of the left wrist. Psychiatric: Appropriate mood and affect. Rosi Coma Scale Score: 15 Patient History Past Medical History: Diagnosis Date ACL (anterior cruciate ligament) rupture 03/13/2009 Bunion Cancer (CMS/HCC) Encounter for full-term uncomplicated delivery Normal vaginal delivery Encounter for gynecological examination (general) (routine) without abnormal findings 11/12/2019 Pap test, as part of routine gynecological examination Other conditions influencing health status Menstruation Personal history of malignant neoplasm of breast History of malignant neoplasm of breast Personal history of other complications of , childbirth and the puerperium History of Personal history of other mental and behavioral disorders History of depression Past Surgical History: Procedure Laterality Date ANTERIOR CRUCIATE LIGAMENT REPAIR 03/13/2009 Primary Repair Of Knee Ligament Cruciate Anterior COLONOSCOPY 08/17/2015 Colonoscopy OTHER SURGICAL HISTORY 08/17/2015 Hallux Valgus (Bunion) Correction OTHER SURGICAL HISTORY 11/29/2019 Colposcopy OTHER SURGICAL HISTORY 08/11/2015 Lumpectomy TUBAL LIGATION 01/30/2021 Tubal Ligation Family History Problem Relation Name Age of Onset Aneurysm Mother Hyperlipidemia Mother Hypertension Mother Breast cancer Mother 74 Meniere's disease Mother Hyperlipidemia Father Hypercholesterolemia Hypertension Father Heart attack Father Breast cancer Paternal Grandmother Social History Tobacco Use Smoking status: Former Types: Cigarettes Smokeless tobacco: Never Vaping Use Vaping Use: Every day Start date: 08/10/2017 Substances: Nicotine, Flavoring Devices: Disposable Substance Use Topics Alcohol use: Yes Comment: occassionally hard seltzer Drug use: Never Physical Exam ED Triage Vitals [02/21/23 1001] Temp Heart Rate Resp BP 36.6 C (97.8 F) 95 16 (!) 105/92 SpO2 Temp Source Heart Rate Source Patient Position 97 % Temporal Monitor Sitting BP Location FiO2 (%) Right arm -- Physical Exam ED Course & MDM Diagnoses as of 02/21/23 1051 Sprain of left wrist, initial encounter Medical Decision Making XR wrist left 3+ views Final Result Negative left wrist. MACRO: None Signed by: Alanna Hilton 02/21/2023 10:45 AM Dictation workstation: [id number] Medical Decision Making: Patient appears well nontoxic. Neurovascular intact. X-ray negative. Placed in wrist splint. Advised on Motrin and Tylenol, elevation, ice. Stable at time of discharge. Differential Diagnoses Considered: Left wrist contusion versus fracture versus dislocation Independent Interpretation of Studies: I independently interpreted: Left wrist x-ray shows no acute fracture or dislocation. Escalation of Care: Appropriate for discharge and follow-up with primary care. Procedure Procedures Max Cisneros DO 02/21/23 1051 documented in this encounter [facility] Work Phone: 02-21-2023 Physician Emergency department Note HPI No chief complaint on file. Limitations to History: None HPI: 47-year-old female presents with left wrist pain after falling approximately 4 hours ago. Tripped over her dog. Fall on outstretched hand. Denies any head injury or loss of consciousness. Additional History Obtained from: at the bedside. Physical Exam: VS: As documented in the triage note and EMR flowsheet from this visit were reviewed. Appearance: Alert. cooperative, in no acute distress. Skin: Intact, dry skin, no lesions, rash, petechiae or purpura. HENT: Normocephalic, atraumatic. Nares patent. No intraoral lesions. Neck: Supple, without meningismus. Trachea at midline. No lymphadenopathy. Musculoskeletal: Full range of motion of the left wrist. Tenderness to palpation of the anterior aspect. Strong palpable radial pulse. Full movement of all fingers. Neurological: Sensation grossly intact to the medial lateral aspect of the left wrist. Psychiatric: Appropriate mood and affect. [place] Coma Scale Score: 15 Patient History Past Medical History: Diagnosis Date ACL (anterior cruciate ligament) rupture 03/13/2009 Bunion Cancer ([facility]) Encounter for full-term uncomplicated delivery Normal vaginal delivery Encounter for gynecological examination (general) (routine) without abnormal findings 11/12/2019 Pap test, as part of routine gynecological examination Other conditions influencing health status Menstruation Personal history of malignant neoplasm of breast History of malignant neoplasm of breast Personal history of other complications of , childbirth and the puerperium History of Personal history of other mental and behavioral disorders History of depression Past Surgical History: Procedure Laterality Date ANTERIOR CRUCIATE LIGAMENT REPAIR 03/13/2009 Primary Repair Of Knee Ligament Cruciate Anterior COLONOSCOPY 08/17/2015 Colonoscopy OTHER SURGICAL HISTORY 08/17/2015 Hallux Valgus (Bunion) Correction OTHER SURGICAL HISTORY 11/29/2019 Colposcopy OTHER SURGICAL HISTORY 08/11/2015 Lumpectomy TUBAL LIGATION 01/30/2021 Tubal Ligation Family History Problem Relation Name Age of Onset Aneurysm Mother Hyperlipidemia Mother Hypertension Mother Breast cancer Mother 74 Meniere's disease Mother Hyperlipidemia Father Hypercholesterolemia Hypertension Father Heart attack Father Breast cancer Paternal Grandmother Social History Tobacco Use Smoking status: Former Types: Cigarettes Smokeless tobacco: Never Vaping Use Vaping Use: Every day Start date: 08/10/2017 Substances: Nicotine, Flavoring Devices: Disposable Substance Use Topics Alcohol use: Yes Comment: occassionally hard seltzer Drug use: Never Physical Exam ED Triage Vitals [02/21/23 1001] Temp Heart Rate Resp BP 36.6 C (97.8 F) 95 16 (!) 105/92 SpO2 Temp Source Heart Rate Source Patient Position 97 % Temporal Monitor Sitting BP Location FiO2 (%) Right arm -- Physical Exam ED Course & MDM Diagnoses as of 02/21/23 1051 Sprain of left wrist, initial encounter Medical Decision Making XR wrist left 3+ views Final Result Negative left wrist. MACRO: None Signed by: Alanna Hilton 02/21/2023 10:45 AM Dictation workstation: [id number] Medical Decision Making: Patient appears well nontoxic. Neurovascular intact. X-ray negative. Placed in wrist splint. Advised on Motrin and Tylenol, elevation, ice. Stable at time of discharge. Differential Diagnoses Considered: Left wrist contusion versus fracture versus dislocation Independent Interpretation of Studies: I independently interpreted: Left wrist x-ray shows no acute fracture or dislocation. Escalation of Care: Appropriate for discharge and follow-up with primary care. Procedure Procedures Max Cisneros DO 02/21/23 1051 [facility] Work Phone: 02-11-2023 Note HNO ID: [id number] Author: Joe Link MD Service: ? Author Type: Physician Type: Progress Notes Filed: 02/11/2023 5:03 PM Note Text: Huber Nichols is a 47 year old female who presents for problem visit for PMB. HPI: 47-year-old female was on tamoxifen for 7+ years. Never had a vaginal bleeding while she was on it. Went off of it last summer. Had an episode of spotting and then it episode of heavier menstrual-like bleeding. It was heavy enough that she was placed on Megace to slow the bleeding. First round she had some Provera. Has not had any bleeding in the last 2 days. Had an endometrial biopsy performed in December and had a pelvic ultrasound. She denies any pelvic pain or other concerns. OB History T3 L3 SAB1 IAB0 Ectopic0 Multiple0 Live Births3 County Manager History LMP: Postmenopausal Age at Menarche: Age at First : Age at Menopause: County Manager History Comments: Sexual Activity: No sexual activity data on record; No partner data on record; question not asked Contraception: No contraception data on record PAST MEDICAL HISTORY Diagnosis Date Cervical high risk HPV (human papillomavirus) test positive 02/25/2022 done at - also 12/25/2020,09/10/2019 Cervical high risk HPV (human papillomavirus) test positive 10/14/2018 on colposcopy done at - 1 oclock Depression Dysplasia of cervix, low grade (CIARAN 1) 02/01/2021 done at -colp- 6 oclock Dysplasia of cervix, low grade (CIARAN 1) 11/17/2019 done at - colp- 2 and 7 oclock Fibrocystic breast left Herpes simplex disciform keratitis Hypothyroidism Invasive ductal carcinoma of breast, female, left (HCC) 08/02/2015 moderately differentiated- estrogen and progesterone receptive POSITIVE LGSIL on Pap smear of cervix 02/25/2022 done at - also 09/10/2019 Low vitamin B12 level Mixed hyperlipidemia Muscle weakness (generalized) Obesity Osteopenia BMD 12/02/2022 at Sinusitis PAST SURGICAL HISTORY Procedure Laterality Date BIOPSY OF VULVA 11/17/2019 done at -squamous mucosa with focal acanthosis, hyperkeratosis, and basal Hypermelanosis BREAST LUMPECTOMY HX Left 08/31/2015 done at -invasive ductal carcinomia- 9mm BX OF BREAST; INCISIONAL Left 08/02/2015 done at CERVIX UTERI CONIZA LP ELCTRO EXCI 03/21/2022 at - COLONOSCOPY SCREENING 08/17/2015 HALLUX VALGUS; LAPIDUS TYPE PROC-BUNION HYSTEROSCOPY, DIAGNOSTIC (SEPARATE 03/2022 DANDC KNEE SURGERY HX 03/13/2009 ACL repair LIGATE FALLOPIAN TUBE ORAL SURGERY PROCEDURE 03/08/2022 right mandibular cust/biopsy SENT LYMPH NODE BIOPSY 08/31/2015 left- negative VAGINOSCOPY 02/01/2021 11/17/2019 FAMILY HISTORY Problem Relation Age of Onset Hypertension Mother Aneurysm Mother Lipids Mother other (meniere's disease) Mother Breast Cancer Mother 74 Hypertension Father Lipids Father Heart Attack Father Breast Cancer Paternal Grandmother No Ocular Disease No Family History Social History Tobacco Use Smoking status: Former Packs/day: 1.00 Years: 30.00 Additional pack years: 0.00 Total pack years: 30.00 Types: Cigarettes Quit date: 12/11/2018 Years since quittin.1 Smokeless tobacco: Never Substance Use Topics Alcohol use: Yes Comment: socially Current Outpatient Medications Medication Sig megestrol (MEGACE) 20 mg tablet Take 1 tablet (20 mg) by mouth once daily. For 4 days. megestrol (MEGACE) 40 mg tablet Take 1 tablet (40 mg) by mouth once daily. VENLAFAXINE ER 150 MG TABLET,EXTENDED RELEASE 24 HR Take 150 mg by mouth once daily. buPROPion SR (WELLBUTRIN SR) 100 mg 12 hr tablet Take 100 mg by mouth two times a day. loratadine (CLARITIN) 10 mg tablet, chewable Take 10 mg by mouth once daily. levothyroxine (SYNTHROID) 88 mcg tablet Take 88 mcg by mouth once daily. pravastatin (PRAVACHOL) 20 mg tablet Take 20 mg by mouth once daily. No current facility-administered medications for this visit. Allergies As of Date: 02/11/2023 Allergen Noted Reaction LATEX 06/17/2022 Other: See Comments Fully Assessed 02/11/2023 Allergies and current medication updated:Yes EXAM: BP 122/84 Wt 178 lb (80.7kg) GENERAL: pleasant, female in no apparent distress HEENT: Normocephalic, atraumatic, mucus membranes moist, and no lesions ASSESSMENT AND PLAN: AUB-suspect she is likely more perimenopausal than completely menopausal. Tamoxifen was likely suppressing menses. Reviewed estradiol and FSH levels. Does not appear menopausal diabetes. Pap and HPV reviewed. Endometrial biopsy reviewed. Scant scant and pelvic ultrasound reviewed. Risk benefits alternatives of hysteroscopy DANDC were discussed with patient, questions were answered to her satisfaction she desires to proceed. Discussed with her that we could consider cyclic Provera if continues to have irregular bleeding, or Mirena IUD. Reviewed risks and benefits of this with history of breast cancer. [place] (more content not included)... [facility] 01-20-2023 Miscellaneous Notes Patient notified and voiced understanding of information and instructions below. Grace Ruiz RN No, would not expect that much bleeding. Megace prescribed. To take 40 mg today. Then 20 mg for 4 days. To go to ER with dizziness, chest pain, short of breath. Santi Suero APRN.LO Patient finished taking the 10 day Provera on . On Friday she began having light bleeding. Friday, her bleeding became heavy. Soaking through a regular tampon and pad in one hour. Early this morning her bleeding became even heavier. Bleeding through a regular tampon and pad every 20 minutes. Denies SOB, CP or dizziness. She is feeling more fatigued. Patient asking if this is normal. Jyoti Kwon RN documented in this encounter [facility] 01-13-2023 History of Presen t illness Narrative Patient ID:Huber Nichols is a 47 y.o. year old female patient with cancer Referring Physician: Shanti Araujo APRN-ACADEMIC COUNSELOR [address] [place] [address] Primary Care Provider: Doris Gill MD Chief Complaint Chief Complaint Patient presents with Breast Cancer She is here today to follow-up on recent vaginal bleeding gynecologic evaluation and consideration of ongoing hormonal manipulation. History of the Present Illness 2015. At age 40, routine mammogram which identified small spiculated nodule in the left breast in the central location. Biopsy showed grade 2 infiltrating ductal carcinoma, ER positive greater than 95%, DE positive greater than 95%, HER2 negative. Oncotype DX and other gene panels were not done. Ovarian suppression or ablation was not discussed, presumably due to low risk 08/31/2015. Lumpectomy with lymph node sampling. Tumor size 0.9 cm and sentinel nodes were negative. Stage was 1A, T1, N0, M0. 11/13/2015. Started on tamoxifen by surgeon Dr. Aguirre. Finished radiation therapy under the care of Dr. Drummond. Treatment with tamoxifen was complicated by side effects consisting of joint aches and pains especially in neck, lower back with nausea and hot flashes. 08/09/2016. Mammogram at [facility] showed no evidence of disease. 03/31/2017. Referred to Dr. Edna Miranda hematology oncology. Patient still had back pain, chest pain pain below her axillary incision site. Reported irregular menses about 3-4 times a year. She was 4 para 3 AB 1 with her first live at age 16. Age of menarche was 9. No first-degree family member history at that time of breast cancer but her paternal grandmother had breast cancer. She complained of blurred vision, nasal discharge, productive cough, palpitations, pain, headaches, poor sleep. 08/11/2017. Mammogram on the left showed stable postoperative change. On the right there is a new circumscribed mass in the central medial right breast which on ultrasound, done 08/28/2017, showed a cyst. 03/30/2018. Patient said that she stopped having periods. Continued on tamoxifen. 09/01/2018. Follow-up with Dr. Camarena who noted her low risk and the appropriateness of continuing on tamoxifen for 5 years. Physical examination noted leukoplakia for which she was encouraged to see an oral surgeon. This was done and no biopsy was recommended. Note was made that the lesion in the right breast had increased in size from 4.3 to 5 mm. Ultrasound was scheduled and showed only cyst. 03/04/2019. Seen by Dr. Wells who affirm low-grade risk for recurrence of her breast cancer. August 17, 2019. Mammogram showed stable benign changes. 11/12/2019. Colposcopy for low-grade squamous intraepithelial lesion, HPV positive. Had had abnormal Pap smears and HPV negativity since 2016. Returned positive for HPV in 2019. 11/16/2019. Seen for ocular migraine Dr. Bennett at [facility]. 02/17/2020. Her mother was diagnosed with breast cancer at the age of 73. This made the patient consider extended treatment with tamoxifen. December 2020. Significant depression. Not only did her mother get diagnosed with breast cancer but her had kidney cancer. Her son had an overdose on heroin and her ex- committed suicide. Started on antidepressants with Zoloft which caused diarrhea and was discontinued. Celexa or Effexor was recommended. 12/22/2020. Repeat Pap smear negative for intraepithelial lesion or malignancy but positive for HPV not type XVI or XVIII 01/30/2021. Repeat colposcopy with persistent HPV positivity. Weight 152 pounds. Pathology returned on 02/13/2021 as CIARAN-1. August 24, 2021. Repeat mammogram showed no evidence of malignancy. 09/11/2021. Saw Dr. Wells and decided to continue with tamoxifen after 5-year course. 03/06/2022. Abnormal Pap smear once again. Plan was for hysteroscopy with LEEP and D&C for thickened endometrial stripe with no menses for over 5 years continuing on tamoxifen 03/11/2022. Follow-up with Dr. Gill. Continued depression. Mother on February 10, 2022. Had oral surgery. Continued on venlafaxine for depression added Wellbutrin. Dose of venlafaxine increased to 150 g. 03/21/2022. LEEP excision of cervix negative for squamous epithelial lesion. Endometrium showed weakly proliferative endometrium. 07/15/2022. Began having right shoulder and arm pain after an exceptionally bad bout of coughing with dull pain down the arm. She could raise her arm in front of her but not laterally or across her chest. She felt that her right arm was weaker. 09/06/2022. Follow-up with Shanti Araujo CNP with complaints of worsening hot flashes, bloating, abdominal cramping without any bleeding and no new breast concerns. She had completed 7 years of treatment. Mammogram done on 08/29/2022 showed no evidence of malignancy. DEXA scan was ordered. Tamoxifen was discontinued. 09/30/2022. Referred to Ortho for her elbow pain with a diagnosis of biceps tendinitis for which she was treated with Naprosyn and given a steroid injection. No tears were demonstrable. There was some soft tissue edema in the medial part of the elbow there was no substantial benefit. 12/02/2022. DEXA scan showed osteopenia. 12/05/2022. Follow-up with Shanti Araujo. She had episodes of vaginal bleeding with heavy bleeding in October for about a week and continue to spot for about 3 weeks. Recently the bleeding had increased with clotting episodes. She was scheduled to see gynecology. Recent hormone levels are consistent with postmenopausal status. 12/19/2022. Follow-up by gynecology. Patient was felt to be perimenopausal. Patient had been considering hysterectomy due to recurrent biopsies of cervix for positive Pap smears and for increased endometrial stripe. Repeat endometrial biopsy was considered. 12/20/2022. Follow-up with Ortho. Had medial epicondylitis of the right elbow. Short course of prednisone was given as well as a brace and MRI of the elbow was ordered. MRI showed moderate tendinosis of the common flexor and extensor tendons. 12/31/2022. Follow-up with Dr. Tijerina patient had tried most of the stated nonsurgical treatments and continued to have ongoing pain. Surgical options were discussed. 01/03/2023. Repeat endometrial biopsy for postmenopausal bleeding. Pathology showed disordered proliferative pattern endometrium which indicated that the endometrium was still active. It was still difficult to determine her menopausal status. She was put on Provera for 10 days. She was told that she could experience bleeding within 2 to 3 days of finishing that course attempting to clean out any remaining lining of the uterus. She was told that if she had any bleeding after that withdrawal bleed episode that she was to notify them because she would likely need a hysteroscopy by Dr. Link. Interval Note 01/13/2023. She returns the office for follow-up. She is being followed closely by [employer]. She is currently not bleeding. She has not had a recent CBC. I told her that it was likely that she is iron deficient and we checked iron levels today. The patient says that she tans frequently. She says that she feels more depressed if she does not marroquin. She is encouraged to stop this habit because of increased risk of skin cancer she verbalized understanding. She is now off tamoxifen. We discussed the breast cancer index which will give her more comfort if it confirm that she does not need any further hormonal suppression to prevent breast cancer recurrence. We will see if there is adequate tissue to do this. She says that her hot flashes are even worse than they were when she was on tamoxifen. I told her that this certainly may be because she is experiencing ovarian failure. We discussed the use of evening primrose oil. She is now more predisposed to getting genetic counseling and testing especially because of her young age at the time of diagnosis and breast cancer in her mother, obviously a first-degree relative. She has osteopenia. We encouraged her to take calcium and vitamin D in the form of something like Caltrate D twice a day to improve absorption for bone health. She is also to continue weightbearing exercise. Monitoring Parameters Physical examinations, mammography and ultrasound, pelvic exams, Pap smears Review of Systems - Oncology Review of Systems Constitutional: Positive for diaphoresis (hot flashes) and fatigue. Negative for appetite change and unexpected weight change. HENT: Negative for dental problem, rhinorrhea and trouble swallowing. Eyes: Negative for visual disturbance. Respiratory: Negative for cough and shortness of breath. Cardiovascular: Negative for leg swelling. Gastrointestinal: Negative for abdominal pain, constipation, diarrhea, nausea and vomiting. Endocrine: Negative for polyuria. Genitourinary: Negative for dysuria, frequency and urgency. Musculoskeletal: Positive for arthralgias (generalized). Skin: Negative for pallor. Neurological: Negative for weakness, light-headedness and headaches. Hematological: Does not bruise/bleed easily. Psychiatric/Behavioral: Negative for self-injury, sleep disturbance and suicidal ideas. The patient is not nervous/anxious. Past Medical History Past Medical History: Diagnosis Date ACL (anterior cruciate ligament) rupture 03/13/2009 [facility] ([facility]) Encounter for full-term uncomplicated delivery Normal vaginal delivery Encounter for gynecological examination (general) (routine) without abnormal findings 11/12/2019 Pap test, as part of routine gynecological examination Other conditions influencing health status Menstruation Personal history of malignant neoplasm of breast History of malignant neoplasm of breast Personal history of other complications of , childbirth and the puerperium History of Personal history of other mental and behavioral disorders History of depression Surgical History Past Surgical History: Procedure Laterality Date ANTERIOR CRUCIATE LIGAMENT REPAIR 03/13/2009 Primary Repair Of Knee Ligament Cruciate Anterior COLONOSCOPY 08/17/2015 Colonoscopy OTHER SURGICAL HISTORY 08/17/2015 Hallux Valgus (Bunion) Correction OTHER SURGICAL HISTORY 11/29/2019 Colposcopy OTHER SURGICAL HISTORY 08/11/2015 Lumpectomy TUBAL LIGATION 01/30/2021 Tubal Ligation Social History Social History Tobacco Use Smoking status: Former Types: Cigarettes Smokeless tobacco: Never Vaping Use Vaping Use: Every day Start date: 08/10/2017 Substances: Nicotine, Flavoring Devices: Disposable Substance Use Topics Alcohol use: Yes Comment: occassionally hard seltzer Drug use: Never Family History family history includes Aneurysm in her mother; Breast cancer in her paternal grandmother; Breast cancer (age of onset: 74) in her mother; Heart attack in her father; Hyperlipidemia in her father and mother; Hypertension in her father and mother; Meniere's disease in her mother. Current Medications Current Outpatient Medications Medication Instructions buPROPion XL (WELLBUTRIN XL) 150 mg, oral, Daily calcium carbonate (Oscal) 500 mg calcium (1,250 mg) tablet 1 tablet, oral, 2 times daily with meals levothyroxine (SYNTHROID, LEVOXYL) 88 mcg, oral, Daily loratadine (CLARITIN REDITABS) 10 mg, oral, Daily medroxyPROGESTERone (PROVERA) 10 mg, oral, Daily pravastatin (Pravachol) 20 mg tablet 1 tablet, oral, Daily venlafaxine XR (EFFEXOR-XR) 150 mg, oral, Daily, Do not crush or chew. OARRS Review I have personally reviewed the OARRS report for Huber Nichols. I have considered the risks of abuse, dependence, addiction and diversion. Review of this document shows 2 scripts for opioids 1 hydrocodone with acetaminophen and the other oxycodone with acetaminophen earlier this year. Vital Signs BP 117/81 (BP Location: Right arm, Patient Position: Sitting, BP Cuff Size: Large adult) Pulse 90 Temp 36.6 C (97.9 F) (Skin) Resp 16 Ht 1.575 m (5' 2.01 ) Wt 81.1 kg (178 lb 12.8 oz) SpO2 96% BMI 32.69 kg/m Physical Exam Vitals and nursing note reviewed. Exam conducted with a production mechanic present. Constitutional: General: She is not in acute distress. Appearance: Normal appearance. She is not ill-appearing or toxic-appearing. Comments: She is a well-developed well-nourished female who is in no acute distress. She does not appear to be acutely or chronically ill. HENT: Head: Normocephalic and atraumatic. Nose: Nose normal. Mouth/Throat: Mouth: Mucous membranes are moist. Pharynx: Oropharynx is clear. No oropharyngeal exudate or posterior oropharyngeal erythema. Comments: I see no evidence of leukoplakia Eyes: General: No scleral icterus. Extraocular Movements: Extraocular movements intact. Conjunctiva/sclera: Conjunctivae normal. Pupils: Pupils are equal, round, and reactive to light. Neck: Comments: There is no significant lymphadenopathy in the head and neck area, supraclavicular or axillary areas bilaterally. There is no gross inguinal adenopathy. Cardiovascular: Rate and Rhythm: Normal rate and regular rhythm. Heart sounds: No murmur heard. Pulmonary: Effort: Pulmonary effort is normal. No respiratory distress. Breath sounds: Normal breath sounds. No wheezing, rhonchi or rales. Chest: Comments: Well healed in left axilla 2.5 inch scar, somewhat tender with palpable scar tissue which is not suspicious. Left breast is smaller than right. She has a circumareolar scar around her left nipple that is also well healed. No signs of recurrent disease. Right breast is without masses nipple change or discharge. Abdominal: General: There is no distension. Palpations: Abdomen is soft. There is no mass. Tenderness: There is no abdominal tenderness. There is no guarding or rebound. Musculoskeletal: General: Normal range of motion. Cervical back: Normal range of motion and neck supple. Right lower leg: No edema. Left lower leg: No edema. Lymphadenopathy: Cervical: No cervical adenopathy. Skin: General: Skin is warm and dry. Coloration: Skin is not jaundiced or pale. Comments: She is tanned all over. I do not see any suspicious skin lesions Neurological: General: No focal deficit present. Mental Status: She is alert and oriented to person, place, and time. Mental status is at baseline. Cranial Nerves: No cranial nerve deficit. Motor: No weakness. Gait: Gait normal. Psychiatric: Mood and Affect: Mood normal. Behavior: Behavior normal. Thought Content: Thought content normal. Judgment: Judgment normal. Current Laboratory Data Laboratory data showed a normal BMP. Alkaline phosphatase was 118 which was 8 units above normal. Folate was normal. Iron saturation was 14% which is low. CBC was normal with a white count of 4.9 hemoglobin of 13 hematocrit 38 and MCV of 95, MCH of 31 MCHC of 33. Platelet count was 273,000. White blood cell differential count was normal. Recent Imaging MR elbow right wo IV contrast Result Date: 12/27/2022 Interpreted By: Gavi Guadarrama and Herzog Jackson STUDY: MRI of the right elbow without IV contrast; 12/27/2022 8:32 am INDICATION: Right pain. COMPARISON: Right elbow radiographs 09/30/2022. ACCESSION NUMBER(S): [id number] ORDERING CLINICIAN: GABRIELA MCFARLAND TECHNIQUE: Multiplanar multisequence MR imaging of the right elbow was obtained without IV contrast. FINDINGS: TENDONS: Moderate tendinosis of the common flexor and common extensor tendons with thickening and increased intrasubstance signal without discrete tear. The biceps, triceps, and brachialis tendons are intact. LIGAMENTS: The major ligaments of the elbow are intact, including the ulnar collateral, lateral ulnar collateral, and radial collateral ligaments. JOINTS: There is no dislocation. The articular cartilage is intact. There is no osteochondral defect. There is no joint effusion. There is no olecranon bursitis. OSSEOUS STRUCTURES: The bone marrow signal is normal. There is no fracture or contusion. There is no marrow replacing lesion. SOFT TISSUES: Musculature is normal without tear or atrophy. The ulnar nerve is normal. The cubital tunnel is intact. Moderate tendinosis of the common flexor and extensor tendons. I personally reviewed the images/study and I agree with the findings as stated. This study was interpreted at [place], [place]. MACRO: None Signed by: Gavi Guadarrama 12/27/2022 9:55 AM Dictation workstation: [id number] Pathology Stage Ia, pT1b, pN 0, cM0 grade 1 moderately differentiated, ER positive greater than 95%, DE positive greater than 95%, HER2 2-3+ on IHC, left breast cancer measuring 9 mm. Performance Status: Symptomatic; fully ambulatory Assessment/Plan Left breast cancer, stage Ia, pT1b, PN 0, cM0 grade 1 moderately differentiated, ER positive greater than 95%, DE positive greater than 95%, HER2 2-3+ on IHC, left breast cancer measuring 9 mm. She is status lumpectomy, postradiation therapy and 7 years of tamoxifen. We discussed the breast cancer index and we will see if she has available tissue to perform this analysis. It may give her peace of mind to know that she does not need to go along with further treatment. She felt that she has been given mixed messages concerning whether or not she needs 10 years of treatment. My analysis of chart records show that she has always been felt to have a low risk of recurrence. 2. Recent vaginal bleeding. She has undergone a thorough evaluation and 2 endometrial biopsies which do not show evidence of malignancy. She will be followed closely by [employer]. They have stated that it is unclear whether she was postmenopausal at this time. 3. History of abnormal Pap smears and positive HPV, status post colposcopies with biopsies and LEEP procedure, the most recent which was negative for malignancy. She will be followed closely by [employer]. 4. History of tanning. I strongly encouraged her to quit this habit due to the increased risk of skin cancer. 5. Need for genetic counseling and possible testing. She was 40 when she was diagnosed with breast cancer and her mother was diagnosed with breast cancer after her and subsequently from it. Her paternal grandmother also had breast cancer. Referral has been made. 6. Osteopenia. She was encouraged to take calcium and vitamin D twice a day for total of 1200 mg of calcium and 800 international units of vitamin D. She will be due for another DEXA scan next year. 7. Hot flashes off tamoxifen. She is on Effexor. Discussed the use of evening primrose oil. She might find that helpful. 8. Possible iron deficiency. We will check her iron levels today and see if she is in need of replenishing her iron stores. She will return to the office in 6 months time for follow-up. She knows to call in the interim should she have any change in her status, questions or concerns. She is encouraged to continue with breast self-examination and report any significant change. Arely Hartman MD Labs drawn today. Breast Index testing- request sent out today Genetics appt 01/29 9am Rtc in 6 months wit ACADEMIC COUNSELOR 07/15/23 at 9am Reviewed AVS with patient- patient verbalizes understanding documented in this encounter [facility] Work Phone: 01-13-2023 Instructions Arely Hartman MD - 01/13/2023 9:00 AM EST Reviewed labs and recent medical history. Discussed her tamoxifen use and the advantage of a breast cancer index testing. Discussed whether she needs 5 years versus 10 years of tamoxifen. Referral placed for test. Discussed her anemia. Will recheck her labs today including iron to assess her levels. Reviewed her osteopenia and encouraged her to take her calcium and vitamin D 2 times a day. (Okay to use generic version) Also continue weight bearing exercise to help maintain good bone health. Discussed using evening primrose oil to assist with control of her hot flashes. Reviewed her need for genetic counseling and testing given her age at diagnosis and her family history of breast cancer. Referral placed. Return to see RECORDING STUDIO SETUP WORKER in 6 months for follow up. documented in this encounter [facility] Work Phone: 01-06-2023 Miscellaneous Notes Called patient and discussed the following: EMB showed disordered proliferative pattern endometrium, which indicates that the endometrium may still be active. Still difficult to determine menopausal status. Reviewed case with Dr. Link. To start Provera and take for 10 days. Should experience bleeding within 2-3 days. Attempting to clean out any remaining lining/blood. If she has ANY bleeding after this withdrawal bleed episode, to notify as then she would likely need a hysteroscopy per Dr. Link. Patient verbalizes understanding. Santi Suero APRN.CNP documented in this encounter [facility] 01-03-2023 Note HNO ID: [id number] Author: Santi Suero APRN.CNP Service: ? Author Type: Nurse Practitioner Type: Progress Notes Filed: 01/03/2023 10:40 AM Note Text: Huber is a 47 year old who presents today for an endometrial biopsy for post menopausal bleeding. Patient reports that she has spotting today again. test: negative UNIVERSAL PROTOCOL / SAFETY CHECKLIST Procedure to be Performed: Endometrial Biopsy Sign In: A Moment of CARE was completed. Personnel directly involved with the procedure wore the appropriate PPE (Personal Protective Equipment). Patient/Surrogate Stated/Verified: PATIENT VERIFIED(optional for EMERGENT procedures): Patient name, Date of , Relevant allergies, and The intended procedure Time Out Communication: Intended patient and procedure match the source documents. Consent documented and matches the intended procedure. Sign Out: SIGN OUT (optional for EMERGENT procedures): All specimen containers correctly labeled. All instruments, equipment, possible retained foreign bodies accounted for. Post-procedure follow-up management communicated and Plan of Care Visit completed when applicable. PROCEDURE: EXTERNAL GENITALIA: Normal in appearance without lesions VAGINA: Normal in appearance without lesions BIOPSY: Speculum placed into the vagina with excellent visualization of the cervix. Cytotec removed.Cervix cleaned with betadine. Anterior lip of cervix grasped with single toothed tenaculum. Uterus sounded to 8 cm. Pipelle inserted into the uterus without difficulty and endometrial biopsy obtained. Specimen labeled and sent to pathology. Hemostasis achieved. Procedure Summary: Patient tolerated procedure well. ASSESSMENT: post menopausal bleeding PLAN: Specimens labeled and sent to Pathology. Will notify patient of results in 1-2 weeks. Post-procedure instructions reviewed and written material given to the patient. Santi Suero APRN.CNP [facility] 01-03-2023 Instructions Patricia Bailey Ma - 01/03/2023 9:54 AM EST YOUR RECOVERY After your biopsy you may have: Vaginal bleeding (less than a normal menstrual period) Mild cramping Do NOT put anything in the vagina for 1 week after your endometrial biopsy. This includes: tampons douches and refraining from having sexual intercourse If you have any discomfort, you may take an over the counter pain medication (motrin, advil, ibuprofen, tylenol, etc). If this does not relieve your discomfort, contact the office. It is okay to wear a sanitary pad until the discharge and spotting stops. RISKS Although problems seldom occur with endometrial biopsies, there can be some complications. You may feel faint during and shortly after the procedure as well as have some bleeding after the procedure. There is also a risk of infection after the procedure. These complications are rare and can be easily treated. You should contact you doctor is you have any of the following: Heavy bleeding (more than your normal period) Bleeding with clots Severe abdominal pain Fever (more than 100.4F) Foul smelling vaginal discharge RESULTS We will have the results of your biopsy in 1-2 weeks. If you do not hear the results of your biopsy after 2 weeks, please contact the office for the results. If you have any additional questions or concerns please do not hesitate to contact the office. documented in this encounter [facility] 01-03-2023 History of Presen t illness Narrative Huber is a 47 year old who presents today for an endometrial biopsy for post menopausal bleeding. Patient reports that she has spotting today again. test: negative UNIVERSAL PROTOCOL / SAFETY CHECKLIST Procedure to be Performed: Endometrial Biopsy Sign In: A Moment of CARE was completed. Personnel directly involved with the procedure wore the appropriate PPE (Personal Protective Equipment). Patient/Surrogate Stated/Verified: PATIENT VERIFIED(optional for EMERGENT procedures): Patient name, Date of , Relevant allergies, and The intended procedure Time Out Communication: Intended patient and procedure match the source documents. Consent documented and matches the intended procedure. Sign Out: SIGN OUT (optional for EMERGENT procedures): All specimen containers correctly labeled. All instruments, equipment, possible retained foreign bodies accounted for. Post-procedure follow-up management communicated and Plan of Care Visit completed when applicable. PROCEDURE: EXTERNAL GENITALIA: Normal in appearance without lesions VAGINA: Normal in appearance without lesions BIOPSY: Speculum placed into the vagina with excellent visualization of the cervix. Cytotec removed.Cervix cleaned with betadine. Anterior lip of cervix grasped with single toothed tenaculum. Uterus sounded to 8 cm. Pipelle inserted into the uterus without difficulty and endometrial biopsy obtained. Specimen labeled and sent to pathology. Hemostasis achieved. Procedure Summary: Patient tolerated procedure well. ASSESSMENT: post menopausal bleeding PLAN: Specimens labeled and sent to Pathology. Will notify patient of results in 1-2 weeks. Post-procedure instructions reviewed and written material given to the patient. Santi Suero APRN.LO documented in this encounter [facility] 12-31-2022 Evaluation + Plan note Associated Problem(s): Medial epicondylitis of right elbow Assessment: Right elbow medial epicondylitis with some ulnar nerve symptoms. She has failed multiple attempts at conservative therapies. She has tried steroids by mouth and injection. She is rested it. She has done occupational therapy. She comes in today for looking for more definitive treatment. She is willing to proceed forward with surgery. Plan: Nerve conduction and EMG studies specifically looking at the ulnar nerve at the right elbow. Relative rest using her cock-up wrist splint and avoiding activities that aggravate. 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 Follow-up in approximately 6 weeks hopefully after the EMG nerve conduction study for definitive surgical planning. She may be a candidate for Tenex. Depending on the nerve study and ulnar nerve decompression may be needed as well. Consider medial epicondylectomy. [facility] Work Phone: 12-31-2022 Miscellaneous Notes Associated Problem(s): Medial epicondylitis of right elbow Assessment: Right elbow medial epicondylitis with some ulnar nerve symptoms. She has failed multiple attempts at conservative therapies. She has tried steroids by mouth and injection. She is rested it. She has done occupational therapy. She comes in today for looking for more definitive treatment. She is willing to proceed forward with surgery. Plan: Nerve conduction and EMG studies specifically looking at the ulnar nerve at the right elbow. Relative rest using her cock-up wrist splint and avoiding activities that aggravate. 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 Follow-up in approximately 6 weeks hopefully after the EMG nerve conduction study for definitive surgical planning. She may be a candidate for Tenex. Depending on the nerve study and ulnar nerve decompression may be needed as well. Consider medial epicondylectomy. documented in this encounter [facility] Work Phone: 12-31-2022 History of Presen t illness Narrative Assessment/Plan Subjective Patient ID: Huber Nichols is a 47 y.o. female. Chief Complaint: Pain of the Right Elbow (MRI 12-27-22/Last Injection 11-13-22/Did not Help per Patient/Pain Rate 8) Last Surgery: No surgery found Last Surgery Date: No surgery found HPI 47-year-old female who has tried most of the standard nonsurgical treatments for medial epicondylitis and continues to have ongoing pain. This started in July when she was building a deck around her pool. Despite rest, steroids both oral and injected, Occupational Therapy, and wrist bracing she has not made good progress. She comes in today for surgical consultation. She does have complaints of numbness and tingling into the little finger and ring finger. OBJECTIVE: ORTHO EXAM Left elbow: Skin healthy and intact No gross swelling or ecchymosis No tenderness to palpation over the olecranon or radial head No tenderness to palpation over the lateral epicondyle Moderate to severe tenderness to palpation over the medial epicondyle and the common extensor origin. Full flexion, extension, pronation/supination Mild pain medially with resisted wrist extension or supination- Moderate pain with resisted wrist flexion or pronation Negative hook test Neurovascular exam normal distally-negative Tinel's at the cubital tunnel. She states that she does get numbness and tingling into the ring finger and the little finger. This is worse when her epicondylar symptoms are worse. IMAGE RESULTS: MR elbow right wo IV contrast Narrative: Interpreted By: Gavi Guadarrama, and Herzog Jeong STUDY: MRI of the right elbow without IV contrast; 12/27/2022 8:32 am INDICATION: Right pain. COMPARISON: Right elbow radiographs 09/30/2022. ACCESSION NUMBER(S): [id number] ORDERING CLINICIAN: GABRIELA MCFARLAND TECHNIQUE: Multiplanar multisequence MR imaging of the right elbow was obtained without IV contrast. FINDINGS: TENDONS: Moderate tendinosis of the common flexor and common extensor tendons with thickening and increased intrasubstance signal without discrete tear. The biceps, triceps, and brachialis tendons are intact. LIGAMENTS: The major ligaments of the elbow are intact, including the ulnar collateral, lateral ulnar collateral, and radial collateral ligaments. JOINTS: There is no dislocation. The articular cartilage is intact. There is no osteochondral defect. There is no joint effusion. There is no olecranon bursitis. OSSEOUS STRUCTURES: The bone marrow signal is normal. There is no fracture or contusion. There is no marrow replacing lesion. SOFT TISSUES: Musculature is normal without tear or atrophy. The ulnar nerve is normal. The cubital tunnel is intact. Impression: Moderate tendinosis of the common flexor and extensor tendons. I personally reviewed the images/study and I agree with the findings as stated. This study was interpreted at [place], [place]. MACRO: None Signed by: Gavi Guadarrama 12/27/2022 9:55 AM Dictation workstation: [id number] ULTRASOUND Site: Right elbow Indication: ELBOW PAIN Technique: B-Mode Ultrasound Examination performed using 8-13 MHz linear transducer with [employer] STUDY TYPE: 1. ULTRASOUND EXTREMITY INCLUDING BUT NOT LIMITED TO ELBOW MUSCLE, TENDONS, LIGAMENTS, FATTY TISSUES, SUBCUTANEOUS TISSUES AND OTHER SOFT TISSUE STRUCTURES SUCH ABSCESSES OR FREE FLUID ACCUMULATION WITHIN THE PRIMARY JOINT WELL ADJACENT JOINTS. 2. REAL TIME WITH IMAGE DOCUMENTATION 3. NON-VASCULAR 4. COMPLETE STUDY WHICH INCLUDES A THOROUGH EVALUATION OF THE ELBOW MUSCLE, TENDONS, LIGAMENTS, FATTY TISSUES, SUBCUTANEOUS TISSUES AND OTHER SOFT TISSUE STRUCTURES SUCH ABSCESSES OR FREE FLUID ACCUMULATION WITHIN THE PRIMARY JOINT WELL ADJACENT JOINTS. Live ultrasound was performed of the patient s ELBOW and PERMANENTLY documented. This is a thorough and complete evaluation of a specific anatomic region specifically the ELBOW. PERMANENT Image documentation was performed. This is the complete and final ultrasound report of the patient's ELBOW. The patient was positioned in order to optimize the ultrasound evaluation of the ELBOW. Ultrasound gel was used as a conductive medium in order to both transmit and receive ultrasonic signals that characterize the soft tissues. . I personally performed the ultrasound and reviewed the findings. These show: Findings: ELBOW Kerry-articular evaluation: Live ultrasound was performed of the patient's ELBOW that shows a normal and intact appearance of the biceps/brachialis tendon. The triceps tendon shows a normal and intact appearance. The lateral epicondylar areas and tendon attachments show normal sonographic configuration. The medial epicondylar areas and tendon attachments show normal sonographic configuration. The olecranon bursa appears normal. Joint Evaluation: The radial head and neck show no bony abnormality or fracture. The olecranon shows no bony abnormality or fracture. No joint effusion is seen. Tendinosis of the medial common flexor origin. The ulnar nerve was visualized in the cubital tunnel. Procedures Orders Placed This Encounter Point of Care Ultrasound Follow Up In Orthopaedic Surgery Follow Up In Orthopaedic Surgery documented in this encounter [facility] Work Phone: 12-19-2022 Miscellaneous Notes Cytotec order sent. For the future, that entire 9:00 slot should be reserved for new OB patients. Thanks, Santi Suero APRN.ACADEMIC COUNSELOR Patient notified. She does want to proceed with EMB. She is off work on 01/03, so I did schedule this is a NOB slot. I hope that's okay? Pharmacy is correct. Please file cytotec. Patient aware to check at pharmacy. Marine Connor RN Please notify patient: Discussed her case with Dr. Don. Hysterectomy likely would not be covered at this time. Repeat endometrial biopsy could be performed to rule out malignancy. Endometrial biopsies are usually considered up to date for a full year, but with Tamoxifen use, another biopsy could be performed to rule out malignancy as Tamoxifen increases endometrial cancer risk.Difficult to determine whether post menopausal or not, but based on labs, likely perimenopausal or menopausal. If she chooses to proceed with EMB, we could give Cytotec to be administered by patient prior to the patient to help soften the cervix. What are her thoughts? Santi Suero APRN.LO documented in this encounter [facility] 12-19-2022 Note HNO ID: [id number] Author: Santi Suero APRN.CNP Service: ? Author Type: Nurse Practitioner Type: Progress Notes Filed: 12/19/2022 2:44 PM Note Text: Huber Nichols is a 47 year old female who presents for problem visit of postmenopausal bleeding. HPI: Patient was diagnosed with breast cancer 8 years ago. Was put on Tamoxifen and took for 7 years. Did not have any bleeding while on Tamoxifen. Stopped taking Tamoxifen in August. Started having bleeding in October. Had a normal period for 1 week straight. Then, for 3-4 weeks had intermittent spotting with some normal bleeding throughout that time as well. FSH in October was 86.5 and increased to 111.7 at the end of November Estradiol was 23 in October and <19 in November. Pelvic ultrasound 2022 showed a 0.7 cm lining. 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 Had an endometrial biopsy in Mar 2022, benign. Also history of vulvar biopsy 2019. OB History No obstetric history on file. 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 No pertinent surgical history. FAMILY HISTORY Problem Relation Age of Onset No Ocular Disease No Family History Social History Tobacco Use Smoking status: Former Packs/day: 1.00 Years: 30.00 Additional pack years: 0.00 Total pack years: 30.00 Types: Cigarettes Quit date: 12/11/2018 Years since quittin.0 Smokeless tobacco: Never Substance Use Topics Alcohol use: Yes Comment: socially Current Outpatient Medications Medication Sig VENLAFAXINE ER 150 MG TABLET,EXTENDED RELEASE 24 HR Take 150 mg by mouth once daily. buPROPion SR (WELLBUTRIN SR) 100 mg 12 hr tablet Take 100 mg by mouth two times a day. loratadine (CLARITIN) 10 mg tablet, chewable Take 10 mg by mouth once daily. levothyroxine (SYNTHROID) 88 mcg tablet Take 88 mcg by mouth once daily. pravastatin (PRAVACHOL) 20 mg tablet Take 20 mg by mouth once daily. tamoxifen (NOLVADEX) 20 mg tablet Take 20 mg by mouth once daily. (Patient not taking: Reported on 12/19/2022) No current facility-administered medications for this visit. Allergies As of Date: 12/19/2022 Allergen Noted Reaction LATEX 06/17/2022 Other: See Comments Fully Assessed 12/19/2022 REVIEW OF SYSTEMS Abdomen: No bloating, early satiety, indigestion, or increased flatulence. No abdominal pain, nausea, vomiting, diarrhea, + constipation Bladder: No dysuria, gross hematuria, urinary frequency, urinary urgency, or incontinence. Breast: No breast lumps, nipple d/c, overlying skin changes, redness or skin retraction. Expanded ROS: N/A Allergies and current medication updated:Yes EXAM: BP 120/82 Wt 173 lb (78.5kg) GENERAL: pleasant, female in no apparent distress HEENT: Normocephalic, atraumatic, mucus membranes moist, and no lesions NECK: Supple, full range of motion, no adenopathy, and thyroid normal DERMATOLOGY: Normal, without lesions, non-icteric, and non-hirsute BREAST: deferred CHEST: Normal inspiratory effort ABDOMEN: Deferred PELVIC: external genitalia normal, normal Bartholin's glands, urethra, Chaplin's glands, no vulvar lesions, no cervical lesions, good vaginal support, physiologic discharge present, normal appearing perineal body and perianal region BIMANUAL: uterus normal size, shape and consistency, no adnexal masses, and non-tender NEURO: alert and oriented x3,exam grossly non-focal EXTREMITIES: normal ASSESSMENT AND PLAN: ASSESSMENT/PLAN: 1. Postmenopausal bleeding - ICD9: 627.1, ICD10: N95.0 (primary diagnosis) - Ultrasound with 7 mm lining - EMB Mar 2022 benign - Elevated FSH and decreased estradiol: likely postmenopausal, but could still be perimenopausal - Based on increased risk of endometrial cancer with past Tamoxifen use, would consider repeat biopsy - Mother also had hysterectomy, patient unsure why - Patient reports that Feb biopsy was unable to be done in office and was done under sedation with LEEP in OR - Patient is asking about hysterectomy due to recurrent biopsies of cervix and now possibly uterus. - To review case with physician and notify patient 2. Abnormal glandular Papanicolaou smear of cervix - ICD9: 795.00, ICD10: R87.619 August 2019: Pap LSIL, HPV+ 2019 Colpo LSIL December 2020 Pap negative, HPV + January 2021 colpo LSIL February 2022 LSIL, HPV+ March 2022 LEEP - Pap done today 3. Osteopenia, unspecified location - ICD9: 733.90, ICD10: M85.80 - Results reviewed - Plan for repeat in 2-3 years 4. Constipation, unspecified constipation type - ICD9: 564.00, ICD10: K59.00 - Recommend colonoscopy - Patient p (more content not included)... [facility] 12-19-2022 Instructions Breonna Moser Ma 12/19/2022 9:52 AM EST YOUR RECOVERY After your biopsy you may have: Vaginal bleeding (less than a normal menstrual period) Mild cramping Do NOT put anything in the vagina for 1 week after your endometrial biopsy. This includes: tampons douches and refraining from having sexual intercourse If you have any discomfort, you may take an over the counter pain medication (motrin, advil, ibuprofen, tylenol, etc). If this does not relieve your discomfort, contact the office. It is okay to wear a sanitary pad until the discharge and spotting stops. RISKS Although problems seldom occur with endometrial biopsies, there can be some complications. You may feel faint during and shortly after the procedure as well as have some bleeding after the procedure. There is also a risk of infection after the procedure. These complications are rare and can be easily treated. You should contact you doctor is you have any of the following: Heavy bleeding (more than your normal period) Bleeding with clots Severe abdominal pain Fever (more than 100.4F) Foul smelling vaginal discharge RESULTS We will have the results of your biopsy in 1-2 weeks. If you do not hear the results of your biopsy after 2 weeks, please contact the office for the results. If you have any additional questions or concerns please do not hesitate to contact the office. documented in this encounter [facility] 12-19-2022 History of Presen t illness Narrative Huber Nichols is a 47 year old female who presents for problem visit of postmenopausal bleeding. HPI: Patient was diagnosed with breast cancer 8 years ago. Was put on Tamoxifen and took for 7 years. Did not have any bleeding while on Tamoxifen. Stopped taking Tamoxifen in August. Started having bleeding in October. Had a normal period for 1 week straight. Then, for 3-4 weeks had intermittent spotting with some normal bleeding throughout that time as well. FSH in October was 86.5 and increased to 111.7 at the end of November Estradiol was 23 in October and <19 in November. Pelvic ultrasound 2022 showed a 0.7 cm lining. 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 Had an endometrial biopsy in Mar 2022, benign. Also history of vulvar biopsy 2019. OB History No obstetric history on file. 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 No pertinent surgical history. FAMILY HISTORY Problem Relation Age of Onset No Ocular Disease No Family History Social History Tobacco Use Smoking status: Former Packs/day: 1.00 Years: 30.00 Additional pack years: 0.00 Total pack years: 30.00 Types: Cigarettes Quit date: 12/11/2018 Years since quittin.0 Smokeless tobacco: Never Substance Use Topics Alcohol use: Yes Comment: socially Current Outpatient Medications Medication Sig VENLAFAXINE ER 150 MG TABLET,EXTENDED RELEASE 24 HR Take 150 mg by mouth once daily. buPROPion SR (WELLBUTRIN SR) 100 mg 12 hr tablet Take 100 mg by mouth two times a day. loratadine (CLARITIN) 10 mg tablet, chewable Take 10 mg by mouth once daily. levothyroxine (SYNTHROID) 88 mcg tablet Take 88 mcg by mouth once daily. pravastatin (PRAVACHOL) 20 mg tablet Take 20 mg by mouth once daily. tamoxifen (NOLVADEX) 20 mg tablet Take 20 mg by mouth once daily. (Patient not taking: Reported on 12/19/2022) No current facility-administered medications for this visit. Allergies As of Date: 12/19/2022 Allergen Noted Reaction LATEX 06/17/2022 Other: See Comments Fully Assessed 12/19/2022 REVIEW OF SYSTEMS Abdomen: No bloating, early satiety, indigestion, or increased flatulence. No abdominal pain, nausea, vomiting, diarrhea, + constipation Bladder: No dysuria, gross hematuria, urinary frequency, urinary urgency, or incontinence. Breast: No breast lumps, nipple d/c, overlying skin changes, redness or skin retraction. Expanded ROS: N/A Allergies and current medication updated:Yes EXAM: BP 120/82 Wt 173 lb (78.5kg) GENERAL: pleasant, female in no apparent distress HEENT: Normocephalic, atraumatic, mucus membranes moist, and no lesions NECK: Supple, full range of motion, no adenopathy, and thyroid normal DERMATOLOGY: Normal, without lesions, non-icteric, and non-hirsute BREAST: deferred CHEST: Normal inspiratory effort ABDOMEN: Deferred PELVIC: external genitalia normal, normal Bartholin's glands, urethra, Chaplin's glands, no vulvar lesions, no cervical lesions, good vaginal support, physiologic discharge present, normal appearing perineal body and perianal region BIMANUAL: uterus normal size, shape and consistency, no adnexal masses, and non-tender NEURO: alert and oriented x3,exam grossly non-focal EXTREMITIES: normal ASSESSMENT AND PLAN: ASSESSMENT/PLAN: 1. Postmenopausal bleeding - ICD9: 627.1, ICD10: N95.0 (primary diagnosis) - Ultrasound with 7 mm lining - EMB Mar 2022 benign - Elevated FSH and decreased estradiol: likely postmenopausal, but could still be perimenopausal - Based on increased risk of endometrial cancer with past Tamoxifen use, would consider repeat biopsy - Mother also had hysterectomy, patient unsure why - Patient reports that Feb biopsy was unable to be done in office and was done under sedation with LEEP in OR - Patient is asking about hysterectomy due to recurrent biopsies of cervix and now possibly uterus. - To review case with physician and notify patient 2. Abnormal glandular Papanicolaou smear of cervix - ICD9: 795.00, ICD10: R87.619 August 2019: Pap LSIL, HPV+ 2019 Colpo LSIL December 2020 Pap negative, HPV + January 2021 colpo LSIL February 2022 LSIL, HPV+ March 2022 LEEP - Pap done today 3. Osteopenia, unspecified location - ICD9: 733.90, ICD10: M85.80 - Results reviewed - Plan for repeat in 2-3 years 4. Constipation, unspecified constipation type - ICD9: 564.00, ICD10: K59.00 - Recommend colonoscopy - Patient plans to follow up with PCP - Ovaries not visualized with ultrasound Case reviewed with Dr. Don. Hysterectomy likely not covered by insurance. Could repeat EMB. Difficult to determine menopausal status due to Tamoxifen use. Santi Suero APRN.CNP Medical Decision Making: Problems: Moderate: New problem with uncertain prognosis Data: Unique test result(s) reviewed: 3+ Unique test(s) ordered: 1 Risk: Low: Low risk from testing/treatment Medical Decision Making Level: 4 - Moderate documented in this encounter [facility] 12-11-2022 Miscellaneous Notes Patient returned phone call and is unable to come in on 12/18 with RR. Appointment with 12/19 works. Harmony Tomlinson RN Left message to call office. Appointment scheduled for 12/18 with RR. Patient also has appointment with on 12/19. Please cancel whichever appointment patient prefers. Grace Ruiz RN Reviewed labs and US. Likely perimenopausal. Ok to put her in my 20 min opening on the 8th to discuss this as we don't need repeat US or EMB at this point. Thanks. Joe Link MD Yes, she did. Her labs are in Care Everywhere. As recent as 12/02. Has she had FSH/LH and estrogen level? I suspect she is not menopausal. Agree we do not need repeat US. Thank you for the update. Let's get her in, figure out what is going on and what she might like to do next. Thanks. Joe Link MD New [facility] patient with [facility]. requesting that patient have a sooner appointment than 01/07 with RR. Scheduled patient with E[facility] on 12/19. RR- patient had an US yesterday. Endometrial lining is now 7 mm. She had an EMB on 03/21/22. Was able to pull all of these from Care Everywhere. Did not schedule her the US on 12/19 given she had one recently. Patient aware she may have an EMB at her visit. Jyoti Kwon RN documented in this encounter [facility] 12-05-2022 History of Presen t illness Narrative Patient ID: Huber Nichols is a 47 y.o. female. Subjective HPI Cancer History: Breast AJCC Edition: 8th (AJCC), Diagnosis Date: Aug 2015, [place], pT1b pN0 cM0 G1 Treatment Synopsis: -diagnosed in August 2015: s/p lumpectomy pT1bN0 ER+DE+Her2 neative -s/p XRT finished 11/2015 -started Oakes around radiation time but did not tolerate, stopped and resumed after XRT, on endocrine therapy consistently since Dec 2015 per patient History of Present Illness: ID Statement: HUBER NICHOLS is a 47 year old Female Chief Complaint: Follow-up on left breast cancer Interval History: HPI Patient is here for oncologic surveillance on her left breast cancer diagnosed August 2015. It is T1b N0 M0, grade 1, stage I was strongly positive ER/DE and negative overexpression of HER-2/holly oncogene. Oncotype or other gene cancer testing were not done. However it was very reasonably and appropriately considered low risk. Ovarian suppression/ablation was not discussed presumably because of low risk . She was started on tamoxifen that initially gave her a significant side effects. Subsequently and currently she tolerates it well. Patient initially underwent lumpectomy and adjuvant radiation therapy and she has been on tamoxifen for anticipated 5 years. Interval History - 12/05/22 Remains depressed from recent loss of mother PCP increased Effexor, on Wellbutrin 150mg to counter act sexual side effects Discontinued Tamoxifen August 2022 milder hot flashes- remain daily, just less frequent through out the day Occasional dizziness, nausea and constipated- takes stool softener Continues to have bloating and cramping In October began having menstrual bleeding- started heavy with clotting last a week, Continued to have spotting for 3 weeks then bleeding became heavy again with clotting has last about a week As of Friday (12/03/22) bleeding has resolved Scheduled to see County Manager January 07. Appetite is good, eating and drinking well No new breast concerns, no discharge, nipple inversion or palpable masses Chronic constipation, manages with stool softener No bleeding bruises easy No swelling Chronic Joint/ muscle pain Cortisone shot in shoulder, know having elbow pain,- cortisone shot in elbow, minimal relief Overall is feeling well Objective Physical Exam Vitals and nursing note reviewed. Constitutional: Appearance: Normal appearance. HENT: Head: Normocephalic and atraumatic. Mouth/Throat: Mouth: Mucous membranes are moist. Pharynx: Oropharynx is clear. Eyes: Extraocular Movements: Extraocular movements intact. Conjunctiva/sclera: Conjunctivae normal. Cardiovascular: Rate and Rhythm: Normal rate and regular rhythm. Heart sounds: Normal heart sounds. No murmur heard. No gallop. Pulmonary: Effort: Pulmonary effort is normal. No respiratory distress. Breath sounds: Normal breath sounds. No wheezing. Abdominal: General: There is no distension. Palpations: Abdomen is soft. There is no mass. Tenderness: There is no abdominal tenderness. Musculoskeletal: General: Normal range of motion. Cervical back: Normal range of motion and neck supple. Skin: General: Skin is warm and dry. Neurological: General: No focal deficit present. Mental Status: She is alert and oriented to person, place, and time. Motor: No weakness. Psychiatric: Mood and Affect: Mood normal. Behavior: Behavior normal. Thought Content: Thought content normal. Judgment: Judgment normal. Performance Status: Asymptomatic Assessment/Plan Assessment: 1. Andre I left breast cancer; T1b N0 M0 status post lumpectomy, radiation therapy. Tumor is strongly positive ER/DE with negative overexpression of HER-2/holly oncogene. Oncotype not performed but clinical low risk She has been on tamoxifen 20 mg daily since Dec 2015 she has completed 5 + years of treatment, we discussed today risks and benefits of extended therapy with tamoxifen to complete 10 yrs vs hormonal testing for menopausal status for AI consideration vs cessation of therapy after discussion of risks and benefits she opted to continue Tamoxifen for additional 5 yrs if she continues to tolerate she had Abnormal mammogram on the right breast in 2018. There is a description of right breast density that has increased in size to 5 mm from previous 4.3 mm on MMG of August 2018. However follow up US done August 2018 confirmed only the presence of a cyst recent mammogram is benign and will follow with mmg in August 2022 today she has stable symptoms and anxiety is improved on Effexor and she would like to try a higher dose although it is coming at cost of sexual side effects which we discussed to consider a break or modification if it worsens plan to continue Tamoxifen 04/01/22: patient is overall doing well. Remains on Tamoxifen and tolerating well. In December hot flashes developed again, manageable and fairly infrequent at this time. She recently had a colposcopy and is awaiting results. At this time we will continue treatment with Tamoxifen. Discussed potential discontinuation in the event abnormalities are resulted on her recent colposcopy. MMG is due in August. Plan is to schedule yearly MMG with follow-up after. 09/06/22- Patient reports hot flashes have worsened and recently started having symptoms of bloating, cramping as though she was about to begin her cycle. Denies any vaginal bleeding, UTI or yeast infections. She has no new breast concerns. Discussed discontinuing Tamoxifen at this time as she has completed 7 years, patient is agreeable. No evidence of malignancy was found on recent MMG. Patient will be due for next MMG in 2023. Discussed bone health with patient. Patient is having some increased shoulder pain, will obtain a baseline dexa scan at this time. Recommended patient to start Calcium w/ vit D. 12/05/22- Since discontinuing Tamoxifen in August patient has been having episodes of vaginal bleeding. Heavy vaginal bleeding began in October for approximately one week. She continued to spot for 3 weeks, bleeding recently increased with clotting. She reported that as of 12/03/22 bleeding has resolved. She remains to have symptoms of abdominal bloating, and cramping. She is scheduled to see a new set off press operator on January 07. Patient any further concerns or clinical breast concerns. Recent hormone levels indicate that post menopausal. FSH 111.7, LH 55.0, Estradiol <19. US on 03/04/22 reported Endometrium thickness of 12mm, Uterus measured 9.6 x 5.2 x 5.9cm, uterine myometrium appeared normal. Will repeat abdominal US and transvaginal US at this time due to postmenopausal vaginal bleeding. Depending on results discussed ordering a CT scan. Furthermore, given patients breast cancer history will reach out to gynecology for an urgent appointment prior to January 07. 2. Bone Health 12/02/22 Dexa Scan- reported osteopenia 3. Bilateral oral leukoplakia: she was evaluated by an oral surgeon in August 2018 who did not recommend a biopsy 4. low TSH she is on Levothyroxine therapy and the dose has been adjusted by her PCP, level normalized on repeat labs the most recent ones 5. Right leg cramps and intermittent swelling dopplers evaluation in August was negative for DVT 6. Young age diagnosis and possible fhx refer to genetics for evaluation , missed apt and today she said she wants to defer for now as she has a lot going on 7. mild leukopenia this has improved, normal b12 and folic acid 8. depression continue effexor , other ssri not tolerated Return to clinic after County Manager appt (schedule with MD) ZAC Rodriguez documented in this encounter [facility] Work Phone: 12-05-2022 Instructions Julia Rader RN - 12/05/2022 10:00 AM EDT Scheduled U/S for 10/30 @ 800 Nothing to eat or drink after midnight Return to see Dr. Hartman on 01/13 @ 800. documented in this encounter [facility] Work Phone: 11-13-2022 Evaluation + Plan note Associated Problem(s): Medial epicondylitis of right elbow Patient tolerated cortisone injection well with positive lidocaine suppression at the right elbow. I am referring to occupational therapy for eval and treat, okay to seek out teaching home-based exercise program. I did recommend elbow strapping with aggravating activities. We reviewed use of OTC medications for symptom control as well as topical products. Plan will be to follow-up in approximately 6 weeks, sooner for changes or concerns. Patient in agreement with plan of care. This note was generated using [employer] software. It may contain errors in wording, punctuation or spelling. [facility] Work Phone: 11-13-2022 Miscellaneous Notes Associated Problem(s): Medial epicondylitis of right elbow Patient tolerated cortisone injection well with positive lidocaine suppression at the right elbow. I am referring to occupational therapy for eval and treat, okay to seek out teaching home-based exercise program. I did recommend elbow strapping with aggravating activities. We reviewed use of OTC medications for symptom control as well as topical products. Plan will be to follow-up in approximately 6 weeks, sooner for changes or concerns. Patient in agreement with plan of care. This note was generated using [employer] software. It may contain errors in wording, punctuation or spelling. documented in this encounter [facility] Work Phone: 11-13-2022 History of Presen t illness Narrative Associated Order(s): M Inj/Asp: R elbow Post-Procedure Diagnose(s): Medial epicondylitis of right elbow Patient ID: Huber Nichols is a 47 y.o. female. Subjective Patient ID: Huber Nichols is a 47 y.o. female. Chief Complaint: Pain of the Right Shoulder (F/U CORTISONE 5 WEEKS AGO. NOT IMPROVED) and Pain of the Right Elbow Right Shoulder [place] is a pleasant 47-year-old female here for follow-up of right shoulder pain and right elbow pain. This is a 6-week follow-up of cortisone injection to the right shoulder. She does believe it helped for about a week, however she notes her elbow is now worse. Pain is most intense to the medial aspect of the elbow with some swelling. Patient is taking the naproxen every 12 hours on as needed basis with food with no GI upset. Patient also taking as needed Tylenol. Patient reports good range of motion of the shoulder, the elbow is most problematic at this time and preventing her from doing routine activities. Objective Right Elbow Exam Tenderness The patient is experiencing tenderness in the medial epicondyle. Range of Motion The patient has normal right elbow ROM. Tests Tinel's sign (cubital tunnel): positive Other Erythema: absent Scars: absent Sensation: normal Pulse: present Comments: Patient with mild swelling over the medial epicondyle, positive aggravation of symptoms with Tinel's testing of the ulnar nerve at the elbow. Slightly limited supination secondary to pain. Full range of motion of distal joints with distal neuro/sensory intact, cap refill at 2 seconds. Right Shoulder Exam Right shoulder exam is normal. Range of Motion The patient has normal right shoulder ROM. Other Sensation: normal Pulse: present Comments: Mild tenderness over the bicipital groove. Mild symptom aggravation with Neer's testing. Improved from last visit. Image Results: XR elbow Narrative: Interpreted By: GAVI GUADARRAMA MD Patient Name: HUBER NICHOLS STUDY: Right elbow dated 09/30/2022. INDICATION: PAIN M25.521: Right elbow pain COMPARISON: None. ACCESSION NUMBER(S): [id number]. ORDERING CLINICIAN: GABRIELA MCFARLAND. TECHNIQUE: AP, lateral, external oblique, and radial head radiographs of the Right elbow. FINDINGS: No fracture or dislocation is evident. No elbow joint effusion is evident. There is a small lateral epicondylar enthesophyte. The soft tissues are grossly unremarkable. Impression: Lateral epicondylar enthesophyte which can be associated with lateral epicondylitis. Assessment/Plan Encounter Diagnoses: Medial epicondylitis of right elbow Orders Placed This Encounter M Inj/Asp: R elbow Point of Care Ultrasound Referral to Occupational Therapy No follow-ups on file. M Inj/Asp: R elbow on 11/13/2022 9:33 AM Indications: pain and joint swelling Details: 25 G needle, ultrasound-guided medial approach Medications: 4 mg dexAMETHasone 4 mg/mL Outcome: tolerated well, no immediate complications + Lidocaine suppression prior to today's DC Procedure, treatment alternatives, risks and benefits explained, specific risks discussed. Consent was given by the patient. Immediately prior to procedure a time out was called to verify the correct patient, procedure, equipment, intranet support and site/side marked as required. Patient was prepped and draped in the usual sterile fashion. Medial epicondylitis of right elbow Patient tolerated cortisone injection well with positive lidocaine suppression at the right elbow. I am referring to occupational therapy for eval and treat, okay to seek out teaching home-based exercise program. I did recommend elbow strapping with aggravating activities. We reviewed use of OTC medications for symptom control as well as topical products. Plan will be to follow-up in approximately 6 weeks, sooner for changes or concerns. Patient in agreement with plan of care. This note was generated using [employer] software. It may contain errors in wording, punctuation or spelling. documented in this encounter [facility] Work Phone: 09-17-2022 History of Presen t illness Narrative Subjective Patient ID: Huber Nichols is a 47 y.o. female who presents for 3 month check up with labs completed. Patient cancelled her referral for ortho and was thinking she needs to go and is asking for another referral. Right Shoulder is hurting HPI Review of Systems Objective There were no vitals taken for this visit. Physical Exam Assessment/Plan Subjective Huber Nichols is a 47 y.o. female who presents for No chief complaint on file.. Here for f/u breast cancer, abnormal pap, hypothyroidism, vitamin B12 def, hyperlipidemia, depression. She is still having some shoulder pain and states that it is moving to her elbow as well and she is interested in seeing ortho. Otherwise she is doing well - her oncologist has taken her off the tamoxifen as she had been on it for 7 years and was having a lot of hot flashes. She will be getting a bone density scan soon as well. Objective Visit Vitals BP 116/84 (BP Location: Right arm, Patient Position: Sitting, BP Cuff Size: Adult) Pulse 79 Physical Exam Vitals reviewed. Constitutional: General: She is not in acute distress. Cardiovascular: Rate and Rhythm: Normal rate and regular rhythm. Heart sounds: No murmur heard. Pulmonary: Effort: Pulmonary effort is normal. No respiratory distress. Breath sounds: Normal breath sounds. Skin: General: Skin is warm and dry. Neurological: General: No focal deficit present. Mental Status: She is alert. Mental status is at baseline. Latest Reference Range & Units 08/29/22 07:03 GLUCOSE 74 - 99 mg/dL 98 SODIUM 136 - 145 mmol/L 140 POTASSIUM 3.5 - 5.3 mmol/L 3.7 CHLORIDE 98 - 107 mmol/L 111 (H) Bicarbonate 21 - 32 mmol/L 23 Anion Gap 10 - 20 mmol/L 10 Blood Urea Nitrogen 6 - 23 mg/dL 17 Creatinine 0.50 - 1.05 mg/dL 0.91 Calcium 8.6 - 10.3 mg/dL 8.4 (L) Albumin 3.4 - 5.0 g/dL 3.9 Alkaline Phosphatase 33 - 110 U/L 99 ALT 7 - 45 U/L 25 AST 9 - 39 U/L 24 Bilirubin Total 0.0 - 1.2 mg/dL 0.5 HDL CHOLESTEROL mg/dL 47.0 Cholesterol/HDL Ratio 3.6 VLDL 0 - 40 mg/dL 26 TRIGLYCERIDES 0 - 149 mg/dL 130 Total Protein 6.4 - 8.2 g/dL 5.8 (L) CHOLESTEROL 0 - 199 mg/dL 170 LDL 0 - 99 mg/dL 97 Vitamin B12 211 - 911 pg/mL 774 Thyroid Stimulating Hormone 0.44 - 3.98 mIU/L 3.24 WBC 4.4 - 11.3 x10E9/L 5.1 RBC 4.00 - 5.20 x10E12/L 3.97 (L) HEMOGLOBIN 12.0 - 16.0 g/dL 12.6 HEMATOCRIT 36.0 - 46.0 % 37.9 MCV 80 - 100 fL 96 MCHC 32.0 - 36.0 g/dL 33.2 Platelets 150 - 450 x10E9/L 217 Neutrophils % 40.0 - 80.0 % 42.7 Immature Granulocytes %, Automated 0.0 - 0.9 % 0.2 Lymphocytes % 13.0 - 44.0 % 42.5 Monocytes % 2.0 - 10.0 % 12.4 Eosinophils % 0.0 - 6.0 % 1.8 Basophils % 0.0 - 2.0 % 0.4 Neutrophils Absolute 1.20 - 7.70 x10E9/L 2.18 Lymphocytes Absolute 1.20 - 4.80 x10E9/L 2.17 Monocytes Absolute 0.10 - 1.00 x10E9/L 0.63 Eosinophils Absolute 0.00 - 0.70 x10E9/L 0.09 Basophils Absolute 0.00 - 0.10 x10E9/L 0.02 RED CELL DISTRIBUTION WIDTH 11.5 - 14.5 % 12.5 GFR Female >90 mL/min/1.73m2 77 (H): Data is abnormally high (L): Data is abnormally low Assessment/Plan Problem List Items Addressed This Visit Hypothyroidism - Primary Relevant Orders CBC and Auto Differential Comprehensive Metabolic Panel TSH with reflex to Free T4 if abnormal Lipid Panel Vitamin B12 Follow Up In Primary Care - Established Low vitamin B12 level Relevant Orders CBC and Auto Differential Comprehensive Metabolic Panel TSH with reflex to Free T4 if abnormal Lipid Panel Vitamin B12 Follow Up In Primary Care - Established Malignant neoplasm of central portion of left female breast (CMS/HCC) Relevant Orders Follow Up In Primary Care - Established Mixed hyperlipidemia Relevant Orders CBC and Auto Differential Comprehensive Metabolic Panel TSH with reflex to Free T4 if abnormal Lipid Panel Vitamin B12 Follow Up In Primary Care - Established Recurrent major depressive disorder (CMS/HCC) Relevant Orders Follow Up In Primary Care - Established Other Visit Diagnoses Seasonal allergies Relevant Orders Follow Up In Primary Care - Established Acute pain of right shoulder Relevant Orders Referral to Orthopaedic Surgery Doris Gill MD documented in this encounter [facility] Work Phone: 09-17-2022 Instructions Doris Gill MD - 09/17/2022 8:00 AM EDT Continue current medications. Follow up with specialists as scheduled. Follow up in 6 months, sooner if needed. documented in this encounter [facility] Work Phone: 09-09-2022 Note Clinic Note: Education Assessment: Learning BarriersNo barriers TaughtPatient Primary Language of PatientEnglish Clinic Visit: Topic(s): Clinic VisitFollow-up plan MethodVerbal, Teach-Back, Handout EvaluationTeaches back Nursing Note: Nursing Notept to get labs at hosp 12/02. dexa scan at [facility] on 12/02- prep given. rtc 12/05 at 830 with rubber roller grinder Electronic Signatures: Jyoti Diaz (RN) (Signed 09-Sep-2022 07:28) Authored: Education Assessment, Clinic Visit, Nursing Note Last Updated: 09-Sep-2022 07:28 by Jyoti Diaz (RN) [facility] 07-15-2022 History of Presen t illness Narrative Subjective Huber Nichols is a 47 y.o. female who presents for Shoulder Pain (Right shoulder pain. Happened approximately two weeks ago. ). Here c/o right shoulder pain for a couple of weeks - started after she was coughing hard. Initially it was upper chest and into the shoulder, now it is just the shoulder. Has a dull pain down the arm as well. Hurts to raise her arm laterally or across her chest - she can raise it in front of her. Occasional numbness. Feels that the right arm is weaker now. Objective Visit Vitals BP 126/78 Pulse 83 Physical Exam Vitals reviewed. Constitutional: General: She is not in acute distress. Cardiovascular: Rate and Rhythm: Normal rate and regular rhythm. Heart sounds: No murmur heard. Pulmonary: Effort: Pulmonary effort is normal. No respiratory distress. Breath sounds: Normal breath sounds. Musculoskeletal: Comments: Decreased ROM of the right shoulder - particularly laterally. There is some tenderness to palpation of the anterior shoulder and possible swelling anteriorly. Skin: General: Skin is warm and dry. Neurological: General: No focal deficit present. Mental Status: She is alert. Mental status is at baseline. Assessment/Plan Problem List Items Addressed This Visit None Visit Diagnoses Acute pain of right shoulder - Primary Relevant Medications predniSONE (Deltasone) 10 mg tablet Other Relevant Orders XR shoulder right 2+ views Referral to Orthopaedic Surgery Doris Gill MD documented in this encounter [facility] Work Phone: 07-15-2022 Instructions Doris Gill MD - 07/15/2022 4:20 PM EDT Will trial a course of prednisone, get xrays, refer to ortho. Follow up here based on results/symptoms. documented in this encounter [facility] Work Phone: 06-17-2022 History of Presen t illness Narrative Follow up Effexor Subjective Huber Nichols is a 47 y.o. female who presents for Follow-up. Here for f/u breast cancer, abnormal pap, hypothyroidism, vitamin B12 def, hyperlipidemia, depression. Medications seem to be helping - nausea seems better since splitting up the medications. Objective Visit Vitals BP 130/80 (BP Location: Right arm, Patient Position: Sitting) Pulse 84 Physical Exam Vitals reviewed. Constitutional: General: She is not in acute distress. Cardiovascular: Rate and Rhythm: Normal rate and regular rhythm. Heart sounds: No murmur heard. Pulmonary: Effort: Pulmonary effort is normal. No respiratory distress. Breath sounds: Normal breath sounds. Skin: General: Skin is warm and dry. Neurological: General: No focal deficit present. Mental Status: She is alert. Mental status is at baseline. Assessment/Plan Problem List Items Addressed This Visit Endocrine/Metabolic Hypothyroidism Hematologic Low vitamin B12 level Other Malignant neoplasm of central portion of left female breast (CMS/HCC) Mixed hyperlipidemia Recurrent major depressive disorder (CMS/HCC) Other Visit Diagnoses Seasonal allergies Doris Gill MD documented in this encounter [facility] Work Phone: 06-17-2022 Instructions Doris Gill MD - 06/17/2022 8:00 AM EDT Continue current medications. Follow up with specialists as scheduled. Follow up in 3 months, sooner if needed. documented in this encounter [facility] Work Phone: 04-01-2022 Note Clinic Note: Education Assessment: Learning BarriersNo barriers TaughtPatient Primary Language of PatientEnglish Clinic Visit: Topic(s): Clinic VisitFollow-up plan MethodVerbal, Teach-Back, Handout Nursing Note: Nursing Notept set up for her yearly mammo 08/29 730 at hosp. rtc 09/02 at 1130 for f/u with rubber roller grinder Electronic Signatures: Jyoti Diaz (RN) (Signed 01-Apr-2022 12:25) Authored: Education Assessment, Clinic Visit, Nursing Note Last Updated: 01-Apr-2022 12:25 by Jyoti Diaz (RN) [facility] 03-21-2022 Note Post Operative Note: PreOp Diagnosis: Thickened endometrium and Pap smear with low-grade RUFUS Post-Procedure Diagnosis: Thickened endometrium and Pap with low-grade RUFUS Procedure: Hysteroscopy dilation curettage 2. Colposcopy 3. LEEP procedure of the cervix 4. 5. Surgeon: Dr. Potter Resident/Fellow/Other Advisory Internship: None Anesthesia: General anesthesia I.V. Fluids: 950 cc Estimated Blood Loss (mL): 100 cc Specimen: yes. Endometrial curettings and cervical LEEP Findings: Benign appearing endometrial cavity and extensive dysplasia throughout the cervix Urine Output: 20 cc Operative Report Dictated: Dictation: not applicable - note contains Operative Report Operative Report: After the procedure risk benefits and alternatives were discussed with the patient the patient verbalized understanding and consent was obtained in the office. On the day of surgery she was taken to the operating room where general anesthesia was administered. She was prepped and draped in the usual sterile fashion the bladder was drained of 20 cc of urine at a neck correction speculum was placed into the patient's vagina the cervix was visualized anterior lip of the cervix was grasped with a single-tooth tenaculum. We attempted to introduce a uterine sound into the cervix but it was extensively stenotic after repeated attempts with a hemostat we were finally able to enter the endometrial cavity and we introduced the hysteroscope there was no obvious pathology seen we performed a sharp curettage of the entire endometrial cavity and the tissue was sent to pathology. We then proceeded to paint the cervix with acetic acid and then with Lugol's solution and there was large areas of dysplasia throughout the entire EXTR internal aspect of the cervix as well as on the right side moving towards the vaginal wall. We then proceeded to perform a LEEP procedure with a Top-Hat of the endocervix. At this point there was moderate bleeding which was controlled with the Bovie and Monsel solution once there was good hemostasis all instruments were removed from the patient's cervix and vagina patient tolerated the procedure well Electronic Signatures: Charmaine Potter) (Signed 21-Mar-2022 10:39) Authored: Post Operative Note, Note Completion Last Updated: 21-Mar-2022 10:39 by Charmaine Potter) [facility] 03-21-2022 Note History & Physical R eviewed: /Lactating: Are You no Are You Currently Breastfeedingno I have reviewed the History and Physical dated: 06-Mar-2022 History and Physical reviewed and relevant findings noted. Patient examined to review pertinent physical findings.: No significant changes Home Medications Reviewed: no changes noted Allergies Reviewed: no changes noted ERAS (Enhanced Recovery After Surgery): ERAS Patient: no Consent: COVID-19 Consent: COVID-19 Risk ConsentSurgeon has reviewed song risks related to the risk of kimberly COVID-19 and if they contract COVID-19 what the risks are. Electronic Signatures: Charmaine Potter) (Signed 21-Mar-2022 08:57) Authored: History & Physical Reviewed, ERAS, Consent, Note Completion Last Updated: 21-Mar-2022 08:57 by Charmaine Potter) [facility] 02-25-2022 Note 6 Date of Procedure: 02/25/2022 Pathologist: MARIO FERNANDEZ MD Date Reported: 03/01/2022 Date Received: 02/25/2022 Submitting Physician: CHARMAINE POTTER M.D. FINAL CYTOLOGICAL INTERPRETATION Squamous and/or Glandular Abnormality A. THINPREP PAP CERVICAL: Specimen adequacy: SATISFACTORY FOR EVALUATION. Quality Indicator: Endocervical/transformation zone component is present. General Categorization: EPITHELIAL CELL ABNORMALITY - SQUAMOUS CELL. See Interpretation. Descriptive Interpretation: LOW GRADE SQUAMOUS INTRAEPITHELIAL LESION (LSIL) - CERVIX. HIGH RISK HPV TEST RESULT: HPV GENOTYPE 16 NEGATIVE HPV GENOTYPE 18 NEGATIVE HPV GENOTYPE OTHER POSITIVE Reference Range: Negative Testing for high-risk (HR) type of human papilloma virus (HPV) is performed by the Nicole michele HPV Test. The michele HPV Test is a qualitative polymerase chain reaction that amplifies DNA of HPV16, HPV18 and 12 other high-risk HPV types (31, 33, 35, 39, 45, 51, 52, 56, 58, 59, 66, and 68) associated with cervical cancer and its precursor lesions. A positive result indicates the presence of HPV DNA due to one or more of the 14 genotypes: 16, 18, 31, 33, 35, 39, 45, 51, 52, 56, 58, 59, 66, and 68. Negative results indicate HPV DNA concentrations are undetectable or below the pre-set threshold for detection. False negative results may be associated with unoptimized sampling. A negative HR HPV result does not exclude the possibility of future cytologic HSIL or underlying CIN2-3 or cancer. This test is approved for cervical specimens by the [place] Food and Drug Administration. Results of this test should be interpreted in conjunction with the patient?s Pap test results. Please refer to ASCCP current guidelines for the use of HPV DNA testing, result interpretation, and patient management. The performance of this test was verified by the Molecular Diagnostic Laboratory at [facility]. The lab is certified under the Clinical Laboratory Amendments of 1988 (CLIA 88) as qualified to perform high complexity clinical laboratory testing. This specimen has been analyzed by the WintermutePrep Imaging System ([employer] an automated imaging and review system, which assists the laboratory in evaluating cells on ThinPrep Pap tests. Following automated imaging, selected alva from every slide were reviewed by a vault custodian and/or pathologist. Electronically Signed Out By MARIO FERNANDEZ MD/AMBER/SHARIF By the signature on this report, the individual or group listed as making the Final Interpretation/Diagnosis certifies that they have reviewed this case. Diagnostic interpretation performed at [place] [id number] Educational Note: Cervical cytology is a screening procedure primarily for squamous cancers and precursors and has associated false-negative and false-positive results as evidenced by published data. Your patient?s test should be interpreted in this context, together with patient?s history and clinical findings. Regular sampling and follow-up of unexplained clinical signs and symptoms are recommended to minimize false negative results. Clinical History Date of Last Menstrual Period: MENOPAUSE Other Clinical Conditions: COTEST HPV(Genotype) except for ASC-H, HSIL, Carcinoma - Include HPV Genotype testing Annual Clinical Diagnosis History: Screening for cervical cancer - (Z12.4) Source of Specimen A: THINPREP PAP CERVICAL [facility] Department of Pathology [address] documented in this encounter [facility] Work Phone: Evaluation note* Diagnosis Acute pain of right shoulder- Primary documented in this encounter [facility] Work Phone: Evaluation note* Diagnosis Hypothyroidism, unspecified type- Primary Recurrent major depressive disorder, remission status unspecified (CMS/HCC) Seasonal allergies Allergic rhinitis, cause unspecified Malignant neoplasm of central portion of left female breast, unspecified estrogen receptor status (CMS/HCC) Low vitamin B12 level Mixed hyperlipidemia Acute pain of right shoulder documented in this encounter [facility] Work Phone: Evaluation note* Diagnosis Medial epicondylitis of right elbow- Primary Acute pain of right shoulder documented in this encounter [facility] Work Phone: Evaluation note* Diagnosis Malignant neoplasm of unspecified site of unspecified female breast (CMS/HCC) Need for MMR vaccine Need for prophylactic vaccination with okmhxtn-ckakn-sydoypn (MMR) vaccine documented in this encounter [facility] Work Phone: Evaluation note* Diagnosis Malignant neoplasm of unspecified site of unspecified female breast (CMS/HCC) documented in this encounter [facility] Work Phone: Evaluation note* Diagnosis Postmenopausal bleeding- Primary Abnormal glandular Papanicolaou smear of cervix Osteopenia, unspecified location Constipation, unspecified constipation type [facility] Medial epicondylitis of right elbow documented in this encounter [facility] Work Phone: Evaluation note* Diagnosis Medial epicondylitis of right elbow documented in this encounter [facility] Work Phone: Evaluation note* Diagnosis Postmenopausal bleeding- Primary [facility] Malignant neoplasm of unspecified site of unspecified female breast (CMS/HCC) documented in this encounter [facility] Work Phone: Evaluation note* Diagnosis Abnormal uterine bleeding- Primary Unspecified disorder of menstruation and other abnormal bleeding from female genital tract [facility] Sprain of left wrist, initial encounter- Primary documented in this encounter [facility] Work Phone: History of Present illness NarrativeLexapro-headaches, effexor-didn't like the way it made her feelMP-[facility] Work Phone: History of Present illness Narrative* She presents today for routine follow up hypothyroidism-stable, breast cancer-stable on tamoxifen. hyperlipidemia-stable. * She has been under more stress recently and is tearful. she states she does feel depressed. She hasbeen depressed before. She was on medications effexor and lexapro and had side effects. She has gained weight. She has been drinking more alcohol. She has been having more acid issues. She has been taking tums. She has not been sleeping well. [facility] Phone: History of Present illness Narrative* She presents today for routine follow up hypothyroidism-stable, breast cancer-stable on tamoxifen. hyperlipidemia-stable. * She has been under more stress recently and is tearful. she states she does feel depressed. She hasbeen depressed before. She was on medications effexor and lexapro and had side effects. She has gained weight. She has been drinking more alcohol. She has been having more acid issues. She has been taking tums. She has not been sleeping well. [facility]CONNECTL[facility] Work Phone: History of Present illness [id number] presents for colposcopy as follow-up for abnormal Paps. Patient was NAL positive HPV. Patient has no acute concernsWvalley hospital medical centeradvisorCONNECTPine[facility] Work Phone: History of Present illness Narrative* Here for f/u breast cancer, abnormal pap, hypothyroidism, vitamin B12 def, hyperlipidemia, depression. * She states that she would like to increase the venlafaxine - she states that she is taking 100 mg daily right now. We will increase to 150 mg daily. * We started wellbutrin at her last visit and she is not sure if that has been helpful or not. 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 At this point we will not make any changes with the wellbutrin. * She states that the allergy medication is definitely helpful. [facility] Work Phone: History of Present illness NarrativeMicotto is a 46-year-old who is here for postop check after hysteroscopy D&C and a LEEP. Patient still reports some scant bloody discharge. Patient has not been sexually active. Patient has no concerns otherwise today was just confirming that she did have a LEEP.[facility] Work Phone: History of Present illness Narrative* Dallas is a pleasant 47-year-old female presenting today for R shoulder pain for a couple months. 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 [facility] [address] Work Phone: Reason for referral (narrative)* Name Reason for referral NA NA Dept. of Dermatology Reason for referral (narrative)* Consultation (Routine) - Authorized Specialty Diagnoses / Procedures Referred By Eusebio juarez Referred To Contact Primary Care Diagnoses Recurrent major depressive disorder, remission status unspecified (CMS/HCC) Seasonal allergies Malignant neoplasm of central portion of left female breast, unspecified estrogen receptor status (CMS/HCC) Hypothyroidism, unspecified type Low vitamin B12 level Mixed hyperlipidemia Procedures Follow Up In Primary Care Doris Gill MD [address] [facility] [place] [address] Referral ID Status Reason Start Date Expiration Date V isits Requested Visits Authorized [id number] Authorized 06/17/2022 12/14/2022 1 1 [facility] Work Phone: Retwew for referral (narrative)* Consultation (Routine) - Authorized Specialty Diagnoses / Procedures Referred By Eusebio juarez Referred To Contact Orthopaedic Surgery / Orthopedic Surgery Diagnoses Acute pain of right shoulder Doris Gill MD [address] [facility] [place] [place] [address] Referral ID Status Reason Start Date Expiration Date Visits Requested Visits Authorized [id number] Authorized Specialty Services Required 07/15/2022 01/11/2023 1 1 * Imaging (Routine) - Authorized Specialty Diagnoses / Procedures Referred By Eusebio t Referred To Contact Radiology Diagnoses Acute pain of right shoulder Procedures XR shoulder right 2+ views Doris Gill MD [address] [place] [address] Referral ID Status Reason Start Date Expiration Date Visits Requested Visits Authorized [id number] Authorized Perform Procedure 07/15/2022 01/11/2023 1 1 [facility] Work Phone: Reason for referral (narrative)* Consultation (Routine) - Authorized Specialty Diagnoses / Procedures Referred By Contac t Referred To Contact Primary Care Diagnoses Recurrent major depressive disorder, remission status unspecified (CMS/HCC) Seasonal allergies Malignant neoplasm of central portion of left female breast, unspecified estrogen receptor status (CMS/HCC) Hypothyroidism, unspecified type Low vitamin B12 level Mixed hyperlipidemia Procedures Follow Up In Primary Care - Established Doris Gill MD [address] [place] [address] Referral ID Status Reason Start Date Expiration Date V isits Requested Visits Authorized [id number] Authorized 09/17/2022 03/16/2023 1 1 * Consultation (Routine) - Authorized Specialty Diagnoses / Procedures Referred By Contac t Referred To Contact Orthopaedic Surgery / Orthopedic Surgery Diagnoses Acute pain of right shoulder Doris Gill MD [address] [place] [address] Referral ID Status Reason Start Date Expiration Date Visits Requested Visits Authorized [id number] Authorized Specialty Services Required 09/17/2022 03/16/2023 1 1 [facility] Work Phone: Regudc for referral (narrative)* Consultation (Routine) - Authorized Specialty Diagnoses / Procedures Referred By Contac t Referred To Contact Orthopaedic Surgery / Orthopedic Surgery Diagnoses Medial epicondylitis of right elbow Procedures Follow Up In Orthopaedic Surgery Gabriela Mcfarland APRN-LO [address] [facility], [address] [address] Referral ID Status Reason Start Date Expiration Date V isits Requested Visits Authorized [id number] Authorized 11/13/2022 05/12/2023 1 1 * Consultation (Routine) - Pending Review Specialty Diagnoses / Procedures Referred By Contac t Referred To Contact Occupational Therapy Diagnoses Medial epicondylitis of right elbow Procedures DE OFFICE/OUTPATIENT NEW HIGH MDM 60-74 MINUTES Gabriela Mcfarland APRN-OL [address] [facility], [place] [id number] Referral ID Status Reason Start Date Expiration Date Visits Requested Visits Authorized [id number] Pending Review Specialty Services Required 11/13/2022 05/12/2023 1 1 * Orthopedic (Routine) - Pending Review Specialty Diagnoses / Procedures Referred By Contac t Referred To Contact Orthopaedic Surgery / Orthopedic Surgery Diagnoses Medial epicondylitis of right elbow Procedures M Inj/Asp: R elbow Gabriela Mcfarland APRN-LO [address] [facility], [place] [phone] Referral ID Status Reason Start Date Expiration Date V isits Requested Visits Authorized [id number] Pending Review 11/13/2022 05/12/2023 1 1 [facility] Work Phone: Reason for referral (narrative)* Consultation (Routine) - Authorized Specialty Diagnoses / Procedures Referred By Contac t Referred To Contact Orthopaedic Surgery / Orthopedic Surgery Diagnoses Medial epicondylitis of right elbow Procedures Follow Up In Orthopaedic Surgery Re Tijerina MD [address] [place] [id number] Referral ID Status Reason Start Date Expiration Date V isits Requested Visits Authorized [id number] Authorized 12/31/2022 12/31/2023 1 1 * Consultation (Routine) - Authorized Specialty Diagnoses / Procedures Referred By Contac t Referred To Contact Orthopaedic Surgery / Orthopedic Surgery Diagnoses Medial epicondylitis of right elbow Procedures Follow Up In Orthopaedic Surgery Re Tijerina MD [address] [facility] [address] [place] [phone] Referral ID Status Reason Start Date Expiration Date V isits Requested Visits Authorized [id number] Authorized 12/31/2022 12/31/2023 1 1 [facility] Work Phone: Reason for referral (narrative)* Outpatient Procedure (Routine) - Pending Review Specialty Diagnoses / Procedures Referred By Contac t Referred To Contact [facility] Diagnoses Postmenopausal bleeding Procedures ENDOMETRIAL BIOPSY ENDOMETRIAL BX W/WO ENDOCERVIX BX W/O DILAT SPX Santi Suero APRN.ACADEMIC COUNSELOR [address] [place] [address] [facility] [address] [place] [address] Referral ID Status Reason Start Date Expiration Date Visits Requested Visits Authorized [id number] Pending Review Auto-Generat ed Referral 3 01/03/2024 1 1 [facility] for referral (narrative)* Consultation (Routine) - Authorized Specialty Diagnoses / Procedures Referred By Contac t Referred To Contact Genetics Diagnoses Malignant neoplasm of unspecified site of unspecified female breast (CMS/HCC) Arely Hartman MD [address] [place] [address] Referral ID Status Reason Start Date Expiration Date Visits Requested Visits Authorized [id number] Authorized Specialty Services Required 01/13/2023 01/13/[address] [facility] Work Phone: Reason for referral (narrative)* Consultation (Routine) - Authorized Specialty Diagnoses / Procedures Referred By Contac t Referred To Contact Family Medicine / Primary Care Max Cisneros DO [address] [place] [address] Department [place] [address] Referral ID Status Reason Start Date Expiration Date Visits Requested Visits Authorized [id number] Authorized Specialty Services Required 02/21/2023 02/21/[address] [facility] Work Phone: Reason for visit Narrative* Consultation (Routine) - Authorized Specialty Diagnoses / Procedures Referred By Contac t Referred To Contact Primary Care Diagnoses Recurrent major depressive disorder, remission status unspecified (CMS/HCC) Seasonal allergies Malignant neoplasm of central portion of left female breast, unspecified estrogen receptor status (CMS/HCC) Hypothyroidism, unspecified type Low vitamin B12 level Mixed hyperlipidemia Procedures Follow Up In Primary Care Doris Gill MD [address] [facility] [place] [place] [address] Referral ID Status Reason Start Date Expiration Date V isits Requested Visits Authorized [id number] Authorized 06/17/2022 12/14/2022 1 1 [facility] Work Phone: Summary Purpose Family History No Family History Records Found Mother Name Dates Details Family history of hypertensi on(V17.49, Z82.49) Status:Active Father Name Dates Details Family history of hypertensi on(V17.49, Z82.49) Status:Active Unknown Family Member Name Dates Details Family history of hypertensi on: Mother, Father(V17.49, Z82.49) Status:Active Aneurysm: Mother Status:Active Family history of hyperlipid emia: Mother, Father(V18.19, Z83.438) Status:Active Family history of Meniere's disease: Mother(V19.3, Z83.52) Status:Active Family history of myocardial infarction: Father(V17.3, Z82.49) Status:Active Family history of hyperchole sterolemia: Father(V18.19, Z83.42) Status:Active Family history of malignant neoplasm of breast: Grandparent(V16.3, Z80.3) Status:Active Unknown Family Member Name Dates Details Family history of hypertensi on: Mother, Father(V17.49, Z82.49) Status:Active Aneurysm: Mother Status:Active Family history of hyperlipid emia: Mother, Father(V18.19, Z83.438) Status:Active Family history of Meniere's disease: Mother(V19.3, Z83.52) Status:Active Family history of myocardial infarction: Father(V17.3, Z82.49) Status:Active Family history of hyperchole sterolemia: Father(V18.19, Z83.42) Status:Active Family history of malignant neoplasm of breast: Grandparent(V16.3, Z80.3) Status:Active Unknown Family Member Name Dates Details Family history of hypertensi on: Mother, Father(V17.49, Z82.49) Status:Active Aneurysm: Mother Status:Active Family history of hyperlipid emia: Mother, Father(V18.19, Z83.438) Status:Active Family history of Meniere's disease: Mother(V19.3, Z83.52) Status:Active Family history of myocardial infarction: Father(V17.3, Z82.49) Status:Active Family history of hyperchole sterolemia: Father(V18.19, Z83.42) Status:Active Family history of malignant neoplasm of breast: Grandparent(V16.3, Z80.3) Status:Active Unknown Family Member Name Dates Details Family history of hypertensi on: Mother, Father(V17.49, Z82.49) Status:Active Aneurysm: Mother Status:Active Family history of hyperlipid emia: Mother, Father(V18.19, Z83.438) Status:Active Family history of Meniere's disease: Mother(V19.3, Z83.52) Status:Active Family history of myocardial infarction: Father(V17.3, Z82.49) Status:Active Family history of hyperchole sterolemia: Father(V18.19, Z83.42) Status:Active Family history of malignant neoplasm of breast: Grandparent(V16.3, Z80.3) Status:Active Unknown Family Member Name Dates Details Family history of hypertensi on: Mother, Father(V17.49, Z82.49) Status:Active Aneurysm: Mother Status:Active Family history of hyperlipid emia: Mother, Father(V18.19, Z83.438) Status:Active Family history of Meniere's disease: Mother(V19.3, Z83.52) Status:Active Family history of myocardial infarction: Father(V17.3, Z82.49) Status:Active Family history of hyperchole sterolemia: Father(V18.19, Z83.42) Status:Active Family history of malignant neoplasm of breast: Grandparent(V16.3, Z80.3) Status:Active Unknown Family Member Name Dates Details Family history of hypertensi on: Mother, Father(V17.49, Z82.49) Status:Active Aneurysm: Mother Status:Active Family history of hyperlipid emia: Mother, Father(V18.19, Z83.438) Status:Active Family history of Meniere's disease: Mother(V19.3, Z83.52) Status:Active Family history of myocardial infarction: Father(V17.3, Z82.49) Status:Active Family history of hyperchole sterolemia: Father(V18.19, Z83.42) Status:Active Family history of malignant neoplasm of breast: Grandparent, Mother(V16.3, Z80.3) Status:Active Unknown Family Member Name Dates Details Family history of hypertensi on: Mother, Father(V17.49, Z82.49) Status:Active Aneurysm: Mother Status:Active Family history of hyperlipid emia: Mother, Father(V18.19, Z83.438) Status:Active Family history of Meniere's disease: Mother(V19.3, Z83.52) Status:Active Family history of myocardial infarction: Father(V17.3, Z82.49) Status:Active Family history of hyperchole sterolemia: Father(V18.19, Z83.42) Status:Active Family history of malignant neoplasm of breast: Grandparent, Mother(V16.3, Z80.3) Status:Active Unknown Family Member Name Dates Details Family history of hypertensi on: Mother, Father(V17.49, Z82.49) Status:Active Aneurysm: Mother Status:Active Family history of hyperlipid emia: Mother, Father(V18.19, Z83.438) Status:Active Family history of Meniere's disease: Mother(V19.3, Z83.52) Status:Active Family history of myocardial infarction: Father(V17.3, Z82.49) Status:Active Family history of hyperchole sterolemia: Father(V18.19, Z83.42) Status:Active Family history of malignant neoplasm of breast: Mother, Paternal Grandmother(V16.3, Z80.3) Comments:mom: onset age 74; Status:Active Unknown Family Member Name Dates Details Family history of hypertensi on: Mother, Father(V17.49, Z82.49) Status:Active Aneurysm: Mother Status:Active Family history of hyperlipid emia: Mother, Father(V18.19, Z83.438) Status:Active Family history of Meniere's disease: Mother(V19.3, Z83.52) Status:Active Family history of myocardial infarction: Father(V17.3, Z82.49) Status:Active Family history of hyperchole sterolemia: Father(V18.19, Z83.42) Status:Active Family history of malignant neoplasm of breast: Mother, Paternal Grandmother(V16.3, Z80.3) Comments:mom: onset age 74; Status:Active Unknown Family Member Name Dates Details Family history of hypertensi on: Mother, Father(V17.49, Z82.49) Status:Active Aneurysm: Mother Status:Active Family history of hyperlipid emia: Mother, Father(V18.19, Z83.438) Status:Active Family history of Meniere's disease: Mother(V19.3, Z83.52) Status:Active Family history of myocardial infarction: Father(V17.3, Z82.49) Status:Active Family history of hyperchole sterolemia: Father(V18.19, Z83.42) Status:Active Family history of malignant neoplasm of breast: Mother, Paternal Grandmother(V16.3, Z80.3) Comments:mom: onset age 74; Status:Active Unknown Family Member Name Dates Details Family history of hypertensi on: Mother, Father(V17.49, Z82.49) Status:Active Aneurysm: Mother Status:Active Family history of hyperlipid emia: Mother, Father(V18.19, Z83.438) Status:Active Family history of Meniere's disease: Mother(V19.3, Z83.52) Status:Active Family history of myocardial infarction: Father(V17.3, Z82.49) Status:Active Family history of hyperchole sterolemia: Father(V18.19, Z83.42) Status:Active Family history of malignant neoplasm of breast: Mother, Paternal Grandmother(V16.3, Z80.3) Comments:mom: onset age 74; Status:Active Unknown Family Member Name Dates Details Family history of hypertensi on: Mother, Father(V17.49, Z82.49) Status:Active Aneurysm: Mother Status:Active Family history of hyperlipid emia: Mother, Father(V18.19, Z83.438) Status:Active Family history of Meniere's disease: Mother(V19.3, Z83.52) Status:Active Family history of myocardial infarction: Father(V17.3, Z82.49) Status:Active Family history of hyperchole sterolemia: Father(V18.19, Z83.42) Status:Active Family history of malignant neoplasm of breast: Mother, Paternal Grandmother(V16.3, Z80.3) Comments:mom: onset age 74; Status:Active Unknown Family Member Name Dates Details Family history of hypertensi on: Mother, Father(V17.49, Z82.49) Status:Active Aneurysm: Mother Status:Active Family history of hyperlipid emia: Mother, Father(V18.19, Z83.438) Status:Active Family history of Meniere's disease: Mother(V19.3, Z83.52) Status:Active Family history of myocardial infarction: Father(V17.3, Z82.49) Status:Active Family history of hyperchole sterolemia: Father(V18.19, Z83.42) Status:Active Family history of malignant neoplasm of breast: Mother, Paternal Grandmother(V16.3, Z80.3) Comments:mom: onset age 74; Status:Active Unknown Family Member Name Dates Details Family history of hypertensi on: Mother, Father(V17.49, Z82.49) Status:Active Aneurysm: Mother Status:Active Family history of hyperlipid emia: Mother, Father(V18.19, Z83.438) Status:Active Family history of Meniere's disease: Mother(V19.3, Z83.52) Status:Active Family history of myocardial infarction: Father(V17.3, Z82.49) Status:Active Family history of hyperchole sterolemia: Father(V18.19, Z83.42) Status:Active Family history of malignant neoplasm of breast: Mother, Paternal Grandmother(V16.3, Z80.3) Comments:mom: onset age 74; Status:Active Unknown Family Member Name Dates Details Family history of hypertensi on: Mother, Father(V17.49, Z82.49) Status:Active Aneurysm: Mother Status:Active Family history of hyperlipid emia: Mother, Father(V18.19, Z83.438) Status:Active Family history of Meniere's disease: Mother(V19.3, Z83.52) Status:Active Family history of myocardial infarction: Father(V17.3, Z82.49) Status:Active Family history of hyperchole sterolemia: Father(V18.19, Z83.42) Status:Active Family history of malignant neoplasm of breast: Mother, Paternal Grandmother(V16.3, Z80.3) Comments:mom: onset age 74; Status:Active Unknown Family Member Name Dates Details Aneurysm: Mother Status:Active Family history of hyperlipid emia: Mother, Father(V18.19, Z83.438) Status:Active Family history of Meniere's disease: Mother(V19.3, Z83.52) Status:Active Family history of myocardial infarction: Father(V17.3, Z82.49) Status:Active Family history of hyperchole sterolemia: Father(V18.19, Z83.42) Status:Active Family history of malignant neoplasm of breast: Mother, Paternal Grandmother(V16.3, Z80.3) Comments:mom: onset age 74; Status:Active Family history of hypertensi on: Mother, Father(V17.49, Z82.49) Status:Active Unknown Family Member Name Dates Details Aneurysm: Mother Status:Active Family history of hyperlipid emia: Mother, Father(V18.19, Z83.438) Status:Active Family history of Meniere's disease: Mother(V19.3, Z83.52) Status:Active Family history of myocardial infarction: Father(V17.3, Z82.49) Status:Active Family history of hyperchole sterolemia: Father(V18.19, Z83.42) Status:Active Family history of malignant neoplasm of breast: Mother, Paternal Grandmother(V16.3, Z80.3) Comments:mom: onset age 74; Status:Active Family history of hypertensi on: Mother, Father(V17.49, Z82.49) Status:Active Unknown Family Member Name Dates Details Family history of hypertensi on: Mother, Father(V17.49, Z82.49) Status:Active Aneurysm: Mother Status:Active Family history of hyperlipid emia: Mother, Father(V18.19, Z83.438) Status:Active Family history of Meniere's disease: Mother(V19.3, Z83.52) Status:Active Family history of myocardial infarction: Father(V17.3, Z82.49) Status:Active Family history of hyperchole sterolemia: Father(V18.19, Z83.42) Status:Active Family history of malignant neoplasm of breast: Mother, Paternal Grandmother(V16.3, Z80.3) Comments:mom: onset age 74; Status:Active Unknown Family Member Name Dates Details Family history of hypertensi on: Mother, Father(V17.49, Z82.49) Status:Active Aneurysm: Mother Status:Active Family history of hyperlipid emia: Mother, Father(V18.19, Z83.438) Status:Active Family history of Meniere's disease: Mother(V19.3, Z83.52) Status:Active Family history of myocardial infarction: Father(V17.3, Z82.49) Status:Active Family history of hyperchole sterolemia: Father(V18.19, Z83.42) Status:Active Family history of malignant neoplasm of breast: Mother, Paternal Grandmother(V16.3, Z80.3) Comments:mom: onset age 74; Status:Active Unknown Family Member Name Dates Details Aneurysm: Mother Status:Active Family history of hyperlipid emia: Mother, Father(V18.19, Z83.438) Status:Active Family history of Meniere's disease: Mother(V19.3, Z83.52) Status:Active Family history of myocardial infarction: Father(V17.3, Z82.49) Status:Active Family history of hyperchole sterolemia: Father(V18.19, Z83.42) Status:Active Family history of malignant neoplasm of breast: Mother, Paternal Grandmother(V16.3, Z80.3) Comments:mom: onset age 74; Status:Active Family history of hypertensi on: Mother, Father(V17.49, Z82.49) Status:Active Unknown Family Member Name Dates Details Family history of malignant neoplasm of breast: Mother, Paternal Grandmother(V16.3, Z80.3) Comments:mom: onset age 74; Status:Active Family history of hyperchole sterolemia: Father(V18.19, Z83.42) Status:Active Family history of myocardial infarction: Father(V17.3, Z82.49) Status:Active Family history of Meniere's disease: Mother(V19.3, Z83.52) Status:Active Family history of hyperlipid emia: Mother, Father(V18.19, Z83.438) Status:Active Aneurysm: Mother Status:Active Family history of hypertensi on: Mother, Father(V17.49, Z82.49) Status:Active Unknown Family Member Name Dates Details Aneurysm: Mother Status:Active Family history of hyperlipid emia: Mother, Father(V18.19, Z83.438) Status:Active Family history of Meniere's disease: Mother(V19.3, Z83.52) Status:Active Family history of myocardial infarction: Father(V17.3, Z82.49) Status:Active Family history of hyperchole sterolemia: Father(V18.19, Z83.42) Status:Active Family history of malignant neoplasm of breast: Mother, Paternal Grandmother(V16.3, Z80.3) Comments:mom: onset age 74; Status:Active Family history of hypertensi on: Mother, Father(V17.49, Z82.49) Status:Active Unknown Family Member Name Dates Details Family history of hypertensi on: Mother, Father(V17.49, Z82.49) Status:Active Family history of malignant neoplasm of breast: Mother, Paternal Grandmother(V16.3, Z80.3) Comments:mom: onset age 74; Status:Active Family history of hyperchole sterolemia: Father(V18.19, Z83.42) Status:Active Family history of myocardial infarction: Father(V17.3, Z82.49) Status:Active Family history of Meniere's disease: Mother(V19.3, Z83.52) Status:Active Family history of hyperlipid emia: Mother, Father(V18.19, Z83.438) Status:Active Aneurysm: Mother Status:Active Unknown Family Member Name Dates Details Family history of hypertensi on: Mother, Father(V17.49, Z82.49) Status:Active Aneurysm: Mother Status:Active Family history of hyperlipid emia: Mother, Father(V18.19, Z83.438) Status:Active Family history of Meniere's disease: Mother(V19.3, Z83.52) Status:Active Family history of myocardial infarction: Father(V17.3, Z82.49) Status:Active Family history of hyperchole sterolemia: Father(V18.19, Z83.42) Status:Active Family history of malignant neoplasm of breast: Mother, Paternal Grandmother(V16.3, Z80.3) Comments:mom: onset age 74; Status:Active Unknown Family Member Name Dates Details Family history of hypertensi on: Mother, Father(V17.49, Z82.49) Status:Active Aneurysm: Mother Status:Active Family history of hyperlipid emia: Mother, Father(V18.19, Z83.438) Status:Active Family history of Meniere's disease: Mother(V19.3, Z83.52) Status:Active Family history of myocardial infarction: Father(V17.3, Z82.49) Status:Active Family history of hyperchole sterolemia: Father(V18.19, Z83.42) Status:Active Family history of malignant neoplasm of breast: Mother, Paternal Grandmother(V16.3, Z80.3) Comments:mom: onset age 74; Status:Active Unknown Family Member Name Dates Details Family history of malignant neoplasm of breast: Mother, Paternal Grandmother(V16.3, Z80.3) Comments:mom: onset age 74; Status:Active Family history of hyperchole sterolemia: Father(V18.19, Z83.42) Status:Active Family history of myocardial infarction: Father(V17.3, Z82.49) Status:Active Family history of Meniere's disease: Mother(V19.3, Z83.52) Status:Active Family history of hyperlipid emia: Mother, Father(V18.19, Z83.438) Status:Active Aneurysm: Mother Status:Active Family history of hypertensi on: Mother, Father(V17.49, Z82.49) Status:Active Unknown Family Member Name Dates Details Family history of malignant neoplasm of breast: Mother, Paternal Grandmother(V16.3, Z80.3) Comments:mom: onset age 74; Status:Active Family history of hyperchole sterolemia: Father(V18.19, Z83.42) Status:Active Family history of myocardial infarction: Father(V17.3, Z82.49) Status:Active Family history of Meniere's disease: Mother(V19.3, Z83.52) Status:Active Family history of hyperlipid emia: Mother, Father(V18.19, Z83.438) Status:Active Aneurysm: Mother Status:Active Family history of hypertensi on: Mother, Father(V17.49, Z82.49) Status:Active Unknown Family Member Name Dates Details Family history of hypertensi on: Mother, Father(V17.49, Z82.49) Status:Active Aneurysm: Mother Status:Active Family history of hyperlipid emia: Mother, Father(V18.19, Z83.438) Status:Active Family history of Meniere's disease: Mother(V19.3, Z83.52) Status:Active Family history of myocardial infarction: Father(V17.3, Z82.49) Status:Active Family history of hyperchole sterolemia: Father(V18.19, Z83.42) Status:Active Family history of malignant neoplasm of breast: Mother, Paternal Grandmother(V16.3, Z80.3) Comments:mom: onset age 74; Status:Active Unknown Family Member Name Dates Details Family history of hypertensi on: Mother, Father(V17.49, Z82.49) Status:Active Aneurysm: Mother Status:Active Family history of hyperlipid emia: Mother, Father(V18.19, Z83.438) Status:Active Family history of Meniere's disease: Mother(V19.3, Z83.52) Status:Active Family history of myocardial infarction: Father(V17.3, Z82.49) Status:Active Family history of hyperchole sterolemia: Father(V18.19, Z83.42) Status:Active Family history of malignant neoplasm of breast: Mother, Paternal Grandmother(V16.3, Z80.3) Comments:mom: onset age 74; Status:Active Advance Directives No Advanced Directives Records FoundNo Advanced Directives Records FoundNo Advanced Directives Records FoundNo Advanced Directives Records FoundNo Advanced Directives Records FoundNo Advanced Directives Records FoundNo Advanced Directives Records FoundNo Advanced Directives Records FoundNo Advanced Directives Records FoundNo Advanced Directives Records FoundNo Advanced Directives Records Found Chief Complaint still dizzy, nausea, left ear pain. Now left eye pain. Finished antibiotic never felt better. TriedDramamine did get a little reliefstill dizzy, nausea, left ear pain. Now left eye pain. Finished antibiotic never felt better. TriedDramamine did get a little reliefyearly check with labs. Feeling fatigued for the last couple monthsyearly check with labs. Feeling fatigued for the last couple months Patient is here for yearly exam. Patient does do regular self breast exams. Patient has no concerns. LMP: 2018yearly check with labs. Feeling fatigued for the last couple monthsPT IS HERE TODAY FOR A COLPO. PAP CAME BACK NIL, HPV POSITIVE. HAS NO CONCERNS. LMP: STATES DOES NOT HAVE A CYCLE SINCE SHE HAS BEEN ON TAMOXIFEN.* Pt is here today with the C/O nail deformity. This note was generated by using [employer] software. It may contain errors in wording, punctuate, or spelling. * She is here today for evaluation of abnormalities involving both thumb nails. Her nails have becomethickened and pitted and she states that seem to occur after she was placed on thyroid supplement. We did go over the results of recent lab work and her TSH was well within desirable range on this last checkup. I told her that it look like she might have some features of psoriasis and we talked about having her see a livestock producer for a full assessment. We also discussed making sure she has a healthy diet and I have recommended biotin as an [id number] supplement. She also had a recent visit with her oncologist and she explains that when she went on Zoloft the low dose was tolerable but not really helping with her depression. When she went up on the dose it caused severe diarrhea so she discontinued the medication. Her oncologist just prescribed citalopram and she will let us know how she is doing with the new medicine. She is being followed for breast cancer and so far is a 5-yearsurvivor. She will continue to follow closely with her oncologist. We also discussed her other laboratory test results and I explained that her vitamin B12 level was at the lower end of normal. I have specifically recommended that she get a vitamin B12 sublingual preparation and start taking 1000 mcg daily. I have also strongly recommended that she get this season's flu vaccine.. * Pt is here today with the C/O nail deformity. This note was generated by using [employer] software. It may contain errors in wording, punctuate, or spelling. * She is here today for evaluation of abnormalities involving both thumb nails. Her nails have becomethickened and pitted and she states that seem to occur after she was placed on thyroid supplement. We did go over the results of recent lab work and her TSH was well within desirable range on this last checkup. I told her that it look like she might have some features of psoriasis and we talked about having her see a livestock producer for a full assessment. We also discussed making sure she has a healthy diet and I have recommended biotin as an iwiz-hmo-eapxtiz supplement. She also had a recent visit with her oncologist and she explains that when she went on Zoloft the low dose was tolerable but not really helping with her depression. When she went up on the dose it caused severe diarrhea so she discontinued the medication. Her oncologist just prescribed citalopram and she will let us know how she is doing with the new medicine. She is being followed for breast cancer and so far is a 5-yearsurvivor. She will continue to follow closely with her oncologist. We also discussed her other laboratory test results and I explained that her vitamin B12 level was at the lower end of normal. I have specifically recommended that she get a vitamin B12 sublingual preparation and start taking 1000 mcg daily. I have also strongly recommended that she get this season's flu vaccine.. Patient here today for yearly, She has no concerns. Last pap: 12/22/2020 NIL HPV positive. Mammo:08/22/[address] Wlels. LMP: MENOPatient here today to discuss pap and Ultrasound results. She does not want another colposcopy so she is here to discuss other options. LMP:MENOPt presents for medication review and refills; c/o waxing/waning itching spells.4 week f/u, wants to increase effexor, states allergy medication is helpingPatient here today for 2 week post op. Surgery was on 03/21/22 Dilation curettage, Colposcopy and LEEP. She states overall she feels good. 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 * ONSET: 2 MO * DOI / DOS: NO * IMPROVED: NO * PAIN: 5/10 * PAIN MEDS TAKEN: NO * BRACE WORN: NO * LAST INJECTION: NO * REFERRAL: DR GILL * ACCOMPANIED BY: SELF Reason for Referral Specialty Diagnoses / Procedures Referred By Eusebio juarez Referred To Contact Radiology Diagnoses Malignant neoplasm of unspecified site of unspecified female breast (CMS/HCC) Procedures US PELVIS TRANSABDOMINAL WITH TRANSVAGINAL US pelvis transvaginal Shanti Araujo, MUSEUM SECURITY CHIEF-ACADEMIC COUNSELOR [address] [place] [address] Referral ID Status Reason Start Date Expiration Date Visits Requested Visits Authorized [id number] Pending Review Perform Procedure 3 12/05/2023 1 1 Specialty Diagnoses / Procedures Referred By Eusebio juarez Referred To Contact Radiology Diagnoses Medial epicondylitis of right elbow Procedures MR elbow right wo IV contrast Gabriela Mcfarland, MUSEUM SECURITY CHIEF-ACADEMIC COUNSELOR [address] [facility], [address] [place] [address] Referral ID Status Reason Start Date Expiration Date Visits Requested Visits Authorized [id number] Pending Review Perform Procedure 12/20/2023 1 1 Additional Source Comments INFORMATION SOURCE (unrecogn ized section and content) DATE CREATED AUTHOR AUTHOR'S ORGANIZ ATION 08/22/2017 [facility] DATE CREATED AUTHOR AUTHOR'S ORGANIZ ATION 01/18/[address] [facility] DATE CREATED AUTHOR AUTHOR'S ORGANIZ ATION 10/11/2018 [facility] DATE CREATED AUTHOR AUTHOR'S ORGANIZ ATION 10/03/2022 [facility] DATE CREATED AUTHOR AUTHOR'S ORGANIZ ATION 10/27/2022 [facility] DATE CREATED AUTHOR AUTHOR'S ORGANIZ ATION 10/28/2022 [facility] DATE CREATED AUTHOR AUTHOR'S ORGANIZ ATION 01/03/2023 [facility] DATE CREATED AUTHOR AUTHOR'S ORGANIZ ATION 02/08/2023 [facility] DATE CREATED AUTHOR AUTHOR'S ORGANIZ ATION 02/16/2023 [facility] DATE CREATED AUTHOR AUTHOR'S ORGANIZ ATION 02/27/2023 [facility] Reason for Visit (unrecogniz ed section and content) Specialty Diagnoses / Procedures Referred By Contkarol t Referred To Contact Primary Care Diagnoses Recurrent major depressive disorder, remission status unspecified (CMS/HCC) Seasonal allergies Malignant neoplasm of central portion of left female breast, unspecified estrogen receptor status (CMS/HCC) Hypothyroidism, unspecified type Low vitamin B12 level Mixed hyperlipidemia Procedures Follow Up In Primary Care Doris Gill MD [address] [facility] [place] [address] Referral ID Status Reason Start Date Expiration Date V isits Requested Visits Authorized [id number] Authorized 04/23/2022 10/20/2022 1 1 Reason Comments Shoulder Pain Right shoulder pain. Happened approximately two weeks ago. Reason Comments Pain F/U CORTISONE 5 WEEK S AGO. NOT IMPROVED Pain Reason Comments Breast Cancer Specialty Diagnoses / Procedures Referred By Contac t Referred To Contact Radiology Diagnoses Malignant neoplasm of unspecified site of unspecified female breast (CMS/HCC) Procedures US PELVIS TRANSABDOMINAL WITH TRANSVAGINAL US pelvis transvaginal Shanti Araujo, MUSEUM SECURITY CHIEF-ACADEMIC COUNSELOR [address] [place] [address] Referral ID Status Reason Start Date Expiration Date Visits Requested Visits Authorized [id number] Pending Review Perform Procedure 3 12/05/2023 1 1 Reason Comments AUB - New [facility] Reason Comments Endometrial Biopsy Specialty Diagnoses / Procedures Referred By Contac t Referred To Contact Diagnoses Medial epicondylitis, right elbow Procedures CHG MRI ANY JT UPPER EXTREMITY [facility] [address] [place] [address] Referral ID Status Reason Start Date Expiration Date Visits Re quested Visits Authorized [id number] 1 1 Reason Comments Pain MRI [id number] Inj ection 11-13-22Did not Help per PatientPain Rate 8 Reason Comments Endometrial Biopsy Reason Comments Results Reason Comments Heavy Bleeding Reason Comments Wrist Injury Amb to ER with c/o l eft wrist pain after tripping over her dog at 0630 this morning--fell landing on left wrist--no deformity noted--ice applied and 1000mg Tylenol taken Care Teams (unrecognized sec tion and content) Attending Ambulatory Care Relationship Specialty Start Date End Date Doris Gill MD [address] [place] [address] PCP - General Family Medicine 07/15/22 Attending Ambulatory Care Relationship Specialty Start Date End Date Doris Gill MD [address] [place] [address] PCP - General Family Medicine 09/17/22 Attending Ambulatory Care Relationship Specialty Start Date End Date Doris Gill MD [address] [facility] [place] Office [place] [id number] PCP - General Family Medicine 11/13/22 Attending Ambulatory Care Relationship Specialty Start Date End Date [facility] [place] [address] PCP - General Family Medicine 11/13/22 Attending Ambulatory Care Relationship Specialty Start Date End Date Doris Gill MD [address] [place], [place] [phone] PCP - General Family Medicine 11/13/22 Attending Ambulatory Care Relationship Specialty Start Date End Date Doris Gill MD [address] [place] [address] PCP - General Family Medicine 11/13/22 Attending Ambulatory Care Relationship Specialty Start Date End Date Doris Gill MD [address] [place] [address] [place] [address] PCP - General Family Medicine 11/13/22 Attending Ambulatory Care Relationship Specialty Start Date End Date Doris Gill MD [address] [place], [place] [phone] PCP - General Family Medicine 11/13/22 Arely Hartman MD [facility] [address] [place] [phone] Consulting Physician Hematology and Oncology 01/13/23 Source Comments (unrecognize d section and content) In the event this informatio n is protected by the Federal Confidentiality of Alcohol and Drug Abuse Patient Records regulations: The Federal rules restrict any use of the information to criminally investigate or prosecute any alcohol or drug abuse patient.[facility] the event this information is protected by the Federal Confidentiality of Alcohol and Drug Abuse Patient Records regulations: The Federal rules restrict any use of the information to criminally investigate or prosecute any alcohol or drug abuse patient.[facility] the event this information is protected by the Federal Confidentiality of Alcohol and Drug Abuse Patient Records regulations: The Federal rules restrict any use of the information to criminally investigate or prosecute any alcohol or drug abuse patient.[facility] the event this information is protected by the Federal Confidentiality of Alcohol and Drug Abuse Patient Records regulations: The Federal rules restrict any use of the information to criminally investigate or prosecute any alcohol or drug abuse patient.[facility] Center[facility] the event this information is protected by the Federal Confidentiality of Alcohol and Drug Abuse Patient Records regulations: The Federal rules restrict any use of the information to criminally investigate or prosecute any alcohol or drug abuse patient.[facility] Center[facility] the event this information is protected by the Federal Confidentiality of Alcohol and Drug Abuse Patient Records regulations: The Federal rules restrict any use of the information to criminally investigate or prosecute any alcohol or drug abuse patient.[facility] Center[facility] the event this information is protected by the Federal Confidentiality of Alcohol and Drug Abuse Patient Records regulations: The Federal rules restrict any use of the information to criminally investigate or prosecute any alcohol or drug abuse patient.[facility] FOR RECORDS PERTAINING TO PATIENTS WHO ARE OR HAVE BEEN ENROLLED IN A CHEMICAL DEPENDENCY/SUBSTANCEABUSE PROGRAM, SOME INFORMATION MAY BE OMITTED. This clinical summary was aggregated from multiple sources. Caution should be exercised in using it in the provision of clinical care. This summary normalizes information from multiple sources, and as a consequence, information in this document may materially change the coding, format and clinical context of patient data. In addition, data may be omitted in some cases. CLINICAL DECISIONS SHOULD BE BASED ON THE PRIMARY CLINICAL RECORDS. [facility]. provides no warranty or guarantee of the accuracy or completeness of information in this document.
[2023-03-07 08:59] LABS: Internal QC Validated? YES +Cl - CLEAR BKGD; Pregnancy, Urine Negative Negative
[2023-03-07] MEDS: Lactated Ringers 1,000 ML 15 ML IV ×2 (09:16→11:18)
[2023-03-07] MEDS: Acetaminophen 500 MG Tablet 1000 MG PO (09:16)
[2023-03-07] MEDS: Ketorolac 30 MG/ML Syringe IV (09:16)
[2023-03-07 09:22] LABS: Hematocrit 38.8 % (37-47); Hemoglobin 12.7 g/dL (12.0-15.0); Mean Corp Hgb Conc 32.7 g/dL (32-36); Mean Corpuscular Hgb 30.8 pg (27.0-32.0); Mean Corpuscular Volume 94.2 fL (81-99); Mean Platelet Vol. 9.6 fl (6.2-12.0); Platelet Count 241 K/mm3 (150-450); RBC Distribution Width CV 12.3 % (11.6-14.6); RBC Distribution Width SD 42.5 fl (35.1-43.9); Red Blood Count 4.12 M/mm3 (4.2-5.4); White Blood Count 7.9 K/mm3 (4.4-11.0)
--- NOTE | 2023-03-07 10:05 | EMB_PTH ---
PATHOLOGY RESULTS PATIENT: ZAID DAVIS LOC: [facility] [place][id number] AGE/SX: 47/F ROOM: RE03/07/[address]: Dr. Klaee Link MD : 1975 BED: DIS: 03/07/2023 SPEC #: [id number] RECD: 03/07/23 13:11 STATUS: SUSIE FOSTER #: [id number] TATI: 03/07/23 10:[address]: Kalee Link DEPT: SURGICAL PATHOLOGY RECD BY: Briana Alarcon ENTERED: 03/07/23 13:50 SP TYPE: ENDOM BX/C OTHR DR: Dr. Doris Pederson MD Tissues: Endometrium, NOS Procedures: Surgery Specimen Level IV HEADER OPERATION: Hysteroscopy, Dilation and curettage with Symphion PRE-OP DIAGNOSIS: Postmenopausal bleeding and thickened endometrium TISSUE SUBMITTED: Endometrial curettings MICROSCOPIC DIAGNOSIS Endometrial curettings: Proliferative endometrium. Fragments of myometrium. A fragment of benign ectocervical epithelium. SHEILA:vinay 03/10/2023 MICROSCOPIC DESCRIPTION Slides are reviewed. GROSS DESCRIPTION Received in fixative is one container labeled with the patient's name and designated endometrial curettings. The specimen consists of multiple irregular fragments of marroquin, indurated tissue that in aggregate measure 3.0 x 2.5 x 0.3 cm. The specimen is totally submitted in one cassette. / SHEILA:vinay 03/07/2023 TC:5 CPT: 81882
[2023-03-07] MEDS: Lidocaine 1% /Epi 1:100 (20ml) 20 ML Vial (10:39)
--- NOTE | 2023-03-07 10:45 | PCM.OPRPT ---
Problems Associated Problem List Diagnoses (1) Endometrial thickening on ultrasound: (2) PMB (postmenopausal bleeding): Report of Operation Date of Procedure: 03/07/23 Pre-Operative Diagnosis: PMB, thickened endometrium Post-Operative Diagnosis: Same Surgery/Procedure Performed:: Hysteroscopy D&C Description of Surgical Findings:: Normal cervix, normal vagina, lush endometrium. No discrete abnormalities in the endometrial cavity. Surgeon: Kalee Link laborer drying department: Manoj Rivera MS3 Type of Anesthesia: MAC/Supplemental/Local Anesthesiologist: Vahid Hoyt Special Medications: none Specimen's removed: endometrial curettings Drains: none Estimated Blood Loss (mL): 10 Fluids Replaced: 900 Description of Procedure: The patient was taken to the OR where she was prepped and draped in dorsal lithotomy position. The weighted speculum was placed in the vagina and the anterior lip of the cervix was grasped with a single-tooth tenaculum. A paracervical block was administered with 1% lidocaine with 1-100,000 epinephrine solution. The cervix was dilated serially with Hegar dilators. The Symphion hysteroscope was placed into the uterine cavity and the above findings were noted. Bilateral tubal ostia were identified. The operative instrument was inserted.. The visual dilation and curettage was done. There was lush endometrium, no discrete polyps or fibroids protruding into the endometrial cavity.. The instruments were removed from the vagina. The specimen was handed off and sent to pathology. All sponge and needle counts were correct. Vaginal sweep was performed by me. The patient was awakened and taken to the recovery room in stable condition. Calculated hysteroscopic fluid deficit was 650 cc of normal saline Grafts/Implants Used: none Procedure Start Time: 10:24 Procedure Stop Time: 20:41 Complications none Admit VTE Documentation VTE Present on Admission: No VTE Mechan Device Prophylaxis: SCD's VTE Pharm Prophylaxis ordered?: No Reason prophylaxis not ordered:: Procedure Not Indicated
[2023-03-07 10:50] VITALS: BP 105/62; BP 116/73; PULSE 101; RESP 16; TEMP 37.4; O2SAT 100
[2023-03-07 10:55] VITALS: BP 115/73; BP 116/73; PULSE 95; RESP 16; O2SAT 99
[2023-03-07 11:10] VITALS: BP 116/73; BP 121/71; PULSE 88; RESP 16; TEMP 37.2; O2SAT 95
[2023-03-07] MEDS: oxyCODONE 5 MG Tablet PO (11:41)
--- NOTE | 2023-03-07 11:58 | DCINST_ITS ---
Discharge Instructions Diet Discharge Diet: No restrictions Activity Discharge Activity: [address] (03/08/23) May resume sexual activity in: 2 weeks Lifting Restrictions: none Dressing / Incision Call your doctor if your incision/area has: Sudden Increased Bleeding and Foul Smelling Discharge Call your doctor if you observe: Fever of 101 or Higher and Using more than 1 pad per hour (for 2 hrs in a row) Follow Up Care Please Follow Up With: Kalee Link MD When: You do not need to schedule a follow up unless you have questions or concerns. We will contact you with your pathology. Call [phone] or send a [employer] message to make an appointment or with any concerns or if you have not received your pathology within 10 business days. Test Results: Test results from this visit will be discussed in further detail at your follow-up appointment, if applicable. Discharge Plan Admission Attending Provider: Kalee Link Primary Care Provider: Doris Pederson Discharge Orders/Prescriptions Prescriptions: No Action levothyroxine 88 mcg tablet 88 mcg PO DAILY Patient Comments: take 1 tablet by mouth once daily loratadine 10 mg tablet 10 mg PO DAILY Patient Comments: take 1 tablet by mouth once daily pravastatin 20 mg tablet 20 mg PO QHS Patient Comments: take 1 tablet by mouth once daily bupropion HCl 150 mg tablet extended release 24 hr 150 mg PO DAILY Patient Comments: take 1 tablet by mouth once daily venlafaxine 150 mg capsule,extended release 24hr 150 mg PO DAILY Patient Comments: take 1 capsule by mouth once daily Disposition Disposition (needs filled in before D/C Order can be placed): Home, Self Care
[2023-03-07 12:20] VITALS: BP 116/73
== END 2023-03-07 12:40 | disposition home or self-care (01) ==
LOC: SDC 08:34 → AC 08:35
PROVIDERS: PCP Family Medicine; Referring Provider Obstetrics & Gynecology; Visit Provider Obstetrics & Gynecology
PROC: 0UB98ZZ Excision of Uterus, Via Natural or Artificial Opening Endoscopic (ICD-10-PCS; CPT 58558; principal; 2023-03-07 09:50)
DX: N95.0 Postmenopausal bleeding (principal); Z87.891 Personal history of nicotine dependence; E78.2 Mixed hyperlipidemia; E03.9 Hypothyroidism, unspecified; R93.89 Abnormal findings on diagnostic imaging of other specified body structures; Z85.3 Personal history of malignant neoplasm of breast; Z98.51 Tubal ligation status; Z86.718 Personal history of other venous thrombosis and embolism
CPT/HCPCS: 58558; 00952; 81025; 85027; 88305; J7120